=== PATIENT | male | born 1960 | race Caucasian/White ===

== ENCOUNTER 2018-11-09 08:53 | Day surgery (SDC) | payer MEDICARE ==
[2018-11-07 10:12] VITALS: BMI 46.3
[~2018-11-09 08:53] MED LIST: LACTATED RINGERS 1,000 ML IV SCH
[2018-11-09 09:19] VITALS: RESP 16; TEMP 97.8
[2018-11-09 09:32] LABS: Glucose,Whole Blood 124 mg/dL (75-99)
[2018-11-09] MEDS ORDERED: LIDOCAINE 1% 20 ML VIAL (10MG/ML) FOR IV START INTRADERMA ONE (09:32)
[2018-11-09] MEDS ORDERED: GLYCOPYRROLATE 0.2 MG/ML 2 ML VIAL ONE (09:42)
[2018-11-09] MEDS ORDERED: PROPOFOL 10 MG/ML 20 ML VIAL IV ONE (09:42)
[2018-11-09] MEDS ORDERED: fentaNYL (PF) 50 MCG/ML 2 ML AMP ONE (09:42)
[2018-11-09] MEDS ORDERED: LIDOCAINE 1% INJ 10MG/ML (20 ML MDV) ONE (09:42)
[2018-11-09 10:39] VITALS: BP 139/81
--- NOTE | 2018-11-09 10:45 | P.PCN ---
Date of Procedure: 11/09/18 Description of Procedure: Brief history: Patient is a pleasant scheduled for an elective upper endoscopy as well as colonoscopy as a part of evaluation of GERD and personal history of colonic polyps. The patient reports a history of reflux disease for the past few years. He is on PPI therapy daily. He reports good control of his symptoms while on PPIs. He does report that if he stops the medication he will have breakthrough symptoms. He also has a personal history of multiple colonic polyps and reports polypectomy on prior colonoscopies. Last colonoscopy was 2 years ago significant for 5 polyps removed. Procedure performed: Esophagogastroduodenoscopy with biopsy Colonoscopy with polypectomy Estimated blood loss: Minimal. Preoperative diagnosis: GERD, personal history of colonic polyps, high risk surveillance colonoscopy Anesthesia: MAC Procedure: After informed consent was obtained from the patient was brought into the endoscopy unit and IV sedation was administered by anesthesia under continuous monitoring. Initially upper endoscopy was done. The Olympus GF 190 video endoscope was inserted inserted into the mouth and esophagus intubated without any difficulty and was gradually advanced into the stomach and duodenum and carefully examined. The bulb and second part of the duodenum appeared normal, biopsies taken. The scope was then withdrawn into the stomach adequately insufflated with air and upon careful examination the antrum and body, cardia and fundus appeared grossly normal, there was some mild scattered erythema in the antrum and body suggestive of mild gastritis which was biopsied. The scope was then withdrawn into the esophagus. A small hiatal hernia was seen. The GE junction was located at 41 cm to the incisors. The GE junction appeared somewhat irregular and biopsies were taken.. Rest of the esophagus appeared normal. Patient tolerated the procedure well. At this time the patient continued to remain sedation. Initial digital rectal examination was normal. Olympus CF 190 video colonoscope was then inserted into the rectum and gradually advanced to the cecum without any difficulty. Careful examination was performed as the scope was gradually being withdrawn. The prep was poor, with a large amount of solid stool throughout the colon with copious lavage performed, however visualization still impaired due to the stool burden. The visualized portions of the cecum, ascending colon, transverse colon, descending colon, sigmoid colon and rectum appeared normal. 2 diminutive transverse colon polyps measuring 3 and 4 mm were removed with cold forcep polypectomy. 2 diminutive descending colon polyps measuring 2 and 3 mm were removed with cold forcep polypectomy. Retroflexion was performed in the rectum and no lesions were noted, mild internal hemorrhoids noted. Patient tolerated the procedure well. Impression: 1. Poor colon prep, with a large amount of solid stool throughout the colon. 2. Polypectomy, 2 diminutive transverse colon polyps removed with cold forcep polypectomy and 2 diminutive descending colon polyps removed with cold forcep polypectomy. 3. Mild internal hemorrhoids. 4. Mild gastritis antrum and body, biopsied. 5. GE junction biopsies. Duodenal biopsies. Recommendations: Findings of this examination were discussed with the patient as well as his sternum all. Okay to resume diet. Await pathology from biopsies. Recommendation is for repeat colonoscopy in 3-6 months due to poor prep, with a large stool burden which could not be lavaged.
[2018-11-09 10:58] VITALS: PULSE 75
== END 2018-11-09 11:37 | disposition home or self-care (01) ==
LOC: ORWHC2ENDO 08:53
PROVIDERS: ATTEND Internal Medicine
DX: Z12.11 Encounter for screening for malignant neoplasm of colon (principal); D12.4 Benign neoplasm of descending colon; D12.3 Benign neoplasm of transverse colon; K64.8 Other hemorrhoids; K29.50 Unspecified chronic gastritis without bleeding; K22.70 Barrett's esophagus without dysplasia; K21.9 Gastro-esophageal reflux disease without esophagitis; K44.9 Diaphragmatic hernia without obstruction or gangrene; J44.9 Chronic obstructive pulmonary disease, unspecified; E78.5 Hyperlipidemia, unspecified; I10 Essential (primary) hypertension; M19.90 Unspecified osteoarthritis, unspecified site; E11.9 Type 2 diabetes mellitus without complications; E66.01 Morbid (severe) obesity due to excess calories; Z68.42 Body mass index [BMI] 45.0-49.9, adult; Z86.010 Personal history of colon polyps; Z80.0 Family history of malignant neoplasm of digestive organs; Z79.4 Long term (current) use of insulin
CPT/HCPCS: 88305; 45380; 43239; J2001; J3010; J2704

== ENCOUNTER 2019-02-06 10:54 | Inpatient (IN) | payer MEDICARE ==
[2019-02-06] MEDS ORDERED: SODIUM CHLORIDE 0.9% 1,000 ML IV STA ×2 (11:30)
[2019-02-06 12:20] LABS: Basophils # (A) 0.1 k/uL (0-0.2); Basophils % (A) 1 %; Eosinophils # (A) 0.2 k/uL (0-0.7); Eosinophils % (A) 2 %; HCT 52.9 % (39.0-53.0); HGB 17.4 gm/dL (13.0-17.5); Lymphocytes # (A) 2.3 k/uL (1.0-4.8); Lymphocytes % (A) 23 %; MCH 29.8 pg (25.0-35.0); MCHC 32.9 g/dL (31.0-37.0); MCV 90.8 fL (80.0-100.0); Mean Platelet Volume 8.2; Monocytes # (A) 0.8 k/uL (0-1.0); Monocytes % (A) 8 %; Neutrophils # (A) 6.1 k/uL (1.3-7.7); Neutrophils % (A) 64 %; Platelet Count 298 k/uL (150-450); RBC 5.83 m/uL (4.30-5.90); RDW 12.8 % (11.5-15.5); WBC 9.7 k/uL (3.8-10.6)
--- NOTE | 2019-02-06 12:20 | ED ---
Neuro HPI - General Chief Complaint: Neuro Symptoms/Deficit Stated Complaint: Rt side numbness x week Time Seen by Provider: 02/06/19 11:22 Source: patient Mode of arrival: ambulatory Limitations: no limitations - History of Present Illness Is the patient presenting with stroke symptoms?: Yes -: week(s) (Symptoms times one week) Initial Comments: This is a 58-year-old male the ER for evaluation presented with right-sided numbness and tingling weakness and he had facial droop about a week ago the faci al droop has resolved numbness tingling does maintain on the right side right arm right leg. Patient presents today for evaluation, at the urging of his daughter. Patient also has had uncontrolled blood sugar times one week blood sugars running in the 4 to 500s. Patient himself does admit to some fatigue increased thirst and increased urination. Denies any headaches, no recent medication changes denies drugs alcohol abuse no head trauma no fevers. Location: right face, right arm, right leg History of same: No Place: home Severity: mild Quality: numb, tingling Improves With: time Worsens With: none On Anticoagulants: No Context: gradual onset, sudden onset Associated Symptoms: malaise, weakness Treatments Prior to Arrival: none - Related Data Home Medications: Home Medications Medication Instructions Recorded Confirmed Albuterol Inhaler [Ventolin Hfa 1 - 2 puff INHALATION RT-Q6H PRN 11/07/18 02/06/19 Inhaler] Aspirin 325 mg PO DAILY 11/07/18 02/06/19 Atorvastatin [Lipitor] 40 mg PO DAILY 11/07/18 02/06/19 Insulin Aspart [NovoLOG Flexpen] 8 units SQ HS 11/07/18 02/06/19 Insulin Aspart [NovoLOG Flexpen] 16 units SQ AC-TID 11/07/18 02/06/19 Metolazone [Zaroxolyn] 10 mg PO DAILY 11/07/18 02/06/19 Omeprazole 40 mg PO BID 11/07/18 02/06/19 Torsemide [Demadex] 40 mg PO DAILY 11/07/18 02/06/19 metFORMIN HCL [Glucophage] 1,000 mg PO BID 11/07/18 02/06/19 Beclomethasone Dipropionate [Qvar 1 puff INHALATION RT-BID 02/06/19 02/06/19 80 mcg] DULoxetine HCL [Cymbalta] 90 mg PO DAILY 02/06/19 02/06/19 Insulin Glargine,Hum.rec.anlog 30 unit SQ BID 02/06/19 02/06/19 [Lantus Solostar] Losartan Potassium 100 mg PO DAILY 02/06/19 02/06/19 Ondansetron HCl [Zofran] 8 mg PO DAILY PRN 02/06/19 02/06/19 Potassium Chloride ER [K-Dur 20] 20 meq PO DAILY 02/06/19 02/06/19 Tamsulosin HCl [Flomax] 0.4 mg PO DAILY 02/06/19 02/06/19 lamoTRIgine 200 mg PO DAILY 02/06/19 02/06/19 Allergies/Adverse Reactions: Allergies Allergy/AdvReac Type Severity Reaction Status Date / Time No Known Allergies Allergy Verified 02/06/19 11:49 Review of Systems ROS Statement: Those systems with pertinent positive or pertinent negative responses have been documented in the HPI. ROS Other: All systems not noted in ROS Statement are negative. General Exam Limitations: no limitations General appearance: alert, in no apparent distress Head exam: Present: atraumatic, normocephalic, normal inspection Eye exam: Present: normal appearance, PERRL, EOMI. Absent: scleral icterus, conjunctival injection, periorbital swelling ENT exam: Present: normal exam, mucous membranes moist Neck exam: Present: normal inspection. Absent: tenderness, meningismus, lymphadenopathy Respiratory exam: Present: normal lung sounds bilaterally. Absent: respiratory distress, wheezes, rales, rhonchi, stridor Cardiovascular Exam: Present: normal rhythm, tachycardia, normal heart sounds. Absent: systolic murmur, diastolic murmur, rubs, gallop, clicks GI/Abdominal exam: Present: soft, normal bowel sounds. Absent: distended, tenderness, guarding, rebound, rigid Extremities exam: Present: normal inspection, full ROM, normal capillary refill. Absent: tenderness, pedal edema, joint swelling, calf tenderness Back exam: Present: normal inspection Neurological exam: Present: alert, oriented X3, CN II-XII intact Psychiatric exam: Present: normal affect, normal mood Skin exam: Present: warm, dry, intact, normal color. Absent: rash Stroke MDM - Lab Data Result diagrams: 02/06/19 11:40 02/06/19 11:40 Lab Results 02/06/19 02/06/19 02/06/19 Range/Units 11:40 11:40 11:40 WBC 9.7 (3.8-10.6) k/uL RBC 5.83 (4.30-5.90) m/uL Hgb 17.4 (13.0-17.5) gm/dL Hct 52.9 (39.0-53.0) % MCV 90.8 (80.0-100.0) fL MCH 29.8 (25.0-35.0) pg MCHC 32.9 (31.0-37.0) g/dL RDW 12.8 (11.5-15.5) % Plt Count 298 (150-450) k/uL Neutrophils % 64 % Lymphocytes % 23 % Monocytes % 8 % Eosinophils % 2 % Basophils % 1 % Neutrophils # 6.1 (1.3-7.7) k/uL Lymphocytes # 2.3 (1.0-4.8) k/uL Monocytes # 0.8 (0-1.0) k/uL Eosinophils # 0.2 (0-0.7) k/uL Basophils # 0.1 (0-0.2) k/uL PT 9.7 (9.0-12.0) sec INR 0.9 (<1.2) APTT 22.8 (22.0-30.0) sec Sodium 135 L (137-145) mmol/L Potassium 3.9 (3.5-5.1) mmol/L Chloride 91 L (98-107) mmol/L Carbon Dioxide 29 (22-30) mmol/L Anion Gap 15 mmol/L BUN 33 H (9-20) mg/dL Creatinine 1.20 (0.66-1.25) mg/dL Est GFR (CKD-EPI)AfAm 78 (>60 ml/min/1.73 sqM) Est GFR (CKD-EPI)NonAf 67 (>60 ml/min/1.73 sqM) Glucose 293 H (74-99) mg/dL Calcium 11.0 H (8.4-10.2) mg/dL Total Bilirubin 1.0 (0.2-1.3) mg/dL AST 24 (17-59) U/L ALT 15 L (21-72) U/L Alkaline Phosphatase 83 (38-126) U/L Creatine Kinase 380 H (55-170) U/L Troponin I (0.000-0.034) ng/mL Total Protein 8.0 (6.3-8.2) g/dL Albumin 4.6 (3.5-5.0) g/dL 02/06/19 Range/Units 11:40 WBC (3.8-10.6) k/uL RBC (4.30-5.90) m/uL Hgb (13.0-17.5) gm/dL Hct (39.0-53.0) % MCV (80.0-100.0) fL MCH (25.0-35.0) pg MCHC (31.0-37.0) g/dL RDW (11.5-15.5) % Plt Count (150-450) k/uL Neutrophils % % Lymphocytes % % Monocytes % % Eosinophils % % Basophils % % Neutrophils # (1.3-7.7) k/uL Lymphocytes # (1.0-4.8) k/uL Monocytes # (0-1.0) k/uL Eosinophils # (0-0.7) k/uL Basophils # (0-0.2) k/uL PT (9.0-12.0) sec INR (<1.2) APTT (22.0-30.0) sec Sodium (137-145) mmol/L Potassium (3.5-5.1) mmol/L Chloride (98-107) mmol/L Carbon Dioxide (22-30) mmol/L Anion Gap mmol/L BUN (9-20) mg/dL Creatinine (0.66-1.25) mg/dL Est GFR (CKD-EPI)AfAm (>60 ml/min/1.73 sqM) Est GFR (CKD-EPI)NonAf (>60 ml/min/1.73 sqM) Glucose (74-99) mg/dL Calcium (8.4-10.2) mg/dL Total Bilirubin (0.2-1.3) mg/dL AST (17-59) U/L ALT (21-72) U/L Alkaline Phosphatase (38-126) U/L Creatine Kinase (55-170) U/L Troponin I <0.012 (0.000-0.034) ng/mL Total Protein (6.3-8.2) g/dL Albumin (3.5-5.0) g/dL - NIH Stroke Scale 1a. Level of Consciousness: (0) alert 1b. LOC Questions: (0) answers correctly 1c. LOC Commands: (0) performs tasks correctly 2. Best Gaze: (0) normal 3. Visual: (0) no visual loss 4. Facial Palsy: (0) normal symmetrical movement 5a. Motor Arm Left: (0) no drift 5b. Motor Arm Right: (0) no drift 6a. Motor Leg Left: (0) no drift 6b. Motor Leg Right: (0) no drift 7. Limb Ataxia: (0) absent 8. Sensory: (1) mild/moderate sensory loss 9. Best Language: (0) no aphasia 10. Dysarthria: (0) normal 11. Extinction/Inattention: (0) no abnormality - Thrombolytic Inclusion/Exclusion Thrombolytic Exclusion Criteria: Symptom Onset > 3 Hours - Medical Decision Making 58 male the ER for evaluation patient resents today for evaluation regarding strokelike symptoms elevated blood sugar CTs are negative, patient has history of diabetes and risk factors for stroke. Patient is to be admitted for evaluation by neurology - Radiology Data Radiology results: report reviewed (CT CTA negative for acute disease), image reviewed - EKG Data -: EKG Interpreted by Me (EKG shows sinus tach cardia rate of 101, W[place] 1:30, QRS 70, QTc 453) Past Medical History Past Medical History: COPD, Diabetes Mellitus, GERD/Reflux, Hyperlipidemia, Hypertension, Osteoarthritis (OA) Additional Past Medical History / Comment(s): hx of colon polyps, hx back pain, varicose veins, neuropathy ed feet, ed feet edema, History of Any Multi-Drug Resistant Organisms: None Reported Past Surgical History: Hernia Repair Additional Past Surgical History / Comment(s): left jaw benign tumor removed, left jaw "impacted tissue" removed, left testicular hernia, abdominal hernia, epidural pain shots Past Anesthesia/Blood Transfusion Reactions: No Reported Reaction Past Psychological History: Depression Smoking Status: Former smoker Past Alcohol Use History: None Reported Past Drug Use History: None Reported - Past Family History Mother Family Medical History: No Reported History Course Vital Signs 02/06/19 11:04 Temperature 98.7 F Pulse Rate 110 H Respiratory 18 Rate Blood Pressure 123/76 O2 Sat by Pulse 97 Oximetry Disposition Clinical Impression: Cerebrovascular accident, Transient cerebral ischemia Disposition: ADMITTED IP TO THIS HOSP Condition: Fair Is patient prescribed a controlled substance at d/c from ED?: No Referrals: Pooja Talley MD [Primary Care Provider] - 1-2 days
[2019-02-06 12:29] LABS: Albumin 4.6 g/dL (3.5-5.0); Potassium 3.9 mmol/L (3.5-5.1)
[2019-02-06 12:39] LABS: INR 0.9 (<1.2); Partial Thromboplastin Time 22.8 sec (22.0-30.0); Prothrombin Time 9.7 sec (9.0-12.0)
--- NOTE | 2019-02-06 13:18 | CT ---
EXAMINATION TYPE: CT brain wo con for TPA DATE OF EXAM: 02/06/2019 COMPARISON: None HISTORY: Neuro Deficits Unenhanced CT of the brain was performed. The ventricles, basal cisterns and sulci overlying the cerebral convexities demonstrate mild enlargem ent. There is no evidence for intracranial hemorrhage or sulcal effacement. There is decreased attenuation about the periventricular white matter and deep white matter of both c erebral hemispheres, compatible with chronic small vessel ischemia. Differential diagnosis does inclu de demyelination. No mass effects are seen.No midline shift. Osseous calvarium is intact. If symptoms persist consider MRI. IMPRESSION: 1. Age related atrophic and chronic small vessel ischemic change without acute intracranial process s een at this time.
--- NOTE | 2019-02-06 13:33 | CT ---
EXAMINATION TYPE: CT angio head neck DATE OF EXAM: 02/06/2019 COMPARISON: None HISTORY: Right sided numbness x [address] DLP: 465.4 mGycm CONTRAST: Performed with IV Contrast, patient injected with 100 mL of Isovue 370. Combination Contrast CTA cervical carotids and [place] CTA cervical carotids with 3-D recons truction Contrast CTA of the cervical carotids was performed 3-D reconstruction imaging obtained at a separate workstation. Right carotid system: Mild plaque is seen of the right common carotid artery. There is mild plaque a lso noted at the carotid bulb and proximal ICA. No significant diameter reduction. ECA is patent. Right vertebral artery appears unremarkable. Left carotid system: Mild plaque is seen of the left common carotid artery. There is mild plaque als o noted at the carotid bulb and proximal ICA. No significant diameter reduction. ECA is patent. Lef t vertebral artery appears unremarkable. IMPRESSION: 1. No significant diameter reduction to account for the patient's symptoms. CTA [place] with 3-D reconstruction Contrast CTA of the [place] was performed 3-D reconstruction imaging obtained at a separate workstation. Vertebrobasilar system as well as intracranial portions of the internal carotid arteries and their [place] tributaries are patent. I do not see evidence for sizable aneurysm or vascular malformation. Pl ease note MRI provides greater sensitivity and specificity. Visualized brain appears grossly unremar kable. IMPRESSION: 1. No significant abnormality.
--- NOTE | 2019-02-06 13:34 | XR ---
EXAMINATION TYPE: XR chest 2V DATE OF EXAM: 02/06/2019 COMPARISON: NONE HISTORY: Shortness of breath TECHNIQUE: Frontal and lateral views of the chest are obtained. FINDINGS: Scattered senescent parenchymal changes noted. Hyperinflation compatible with COPD. No evidence for infiltrate. No evidence for atelectasis. Heart size is stable. Mediastinal structures are stable and grossly unremarkable. No evidence for hilar prominence. Degenerative changes dorsal spine. IMPRESSION: 1. No evidence for acute pulmonary disease.
[2019-02-06 13:48] LABS: Appearance,Urine Clear (Clear); Bilirubin,Urine Negative (Negative); Blood,Urine Negative (Negative); Color,Urine Light Yellow; Glucose,Urine (UA) 3+ (Negative); Ketones,Urine Negative (Negative); Leukocyte Esterase,Urine Negative (Negative); Nitrite,Urine Negative (Negative); PH, Urine 5.5 (5.0-8.0); Protein,Urine Negative (Negative); Specific Gravity,Urine 1.028 (1.001-1.035); Urobilinogen,Urine <2.0 mg/dL (<2.0)
[2019-02-06 15:28] LABS: Glucose,Whole Blood 200 mg/dL (75-99)
[2019-02-06] MEDS ORDERED: PNEUMOCOCCAL VACC-PNEUMOVAX 23 25 MCG/0.5 ML VIAL IM ONE (16:08)
[2019-02-06 17:46] LABS: Glucose,Whole Blood 251 mg/dL (75-99)
--- NOTE | 2019-02-06 18:43 | P.CNNES ---
History of Present Illness Consult date: 02/06/19 Requesting physician: Parker Rai Reason for Consult: CVA Chief complaint: "My right side has felt numb since a week ago" History of Present Illness: This is a 58 RH male with copious vascular risk factors including HTN, DMII, HL and h/o tobacco use who a week ago experienced abrupt onset of facial droop, slurred speech, right facial, upper and lower extremity numbness. The facial ameena op and dysarthria have improved, but his right hemianesthesia has not. He walks with a cane. No recent h/o head/neck trauma. No recent changes to his meds. He had been compliant with aspirin 81mg/day therapy prior to the onset of the above neuro sx. Neurologically, patient denies decreased level or loss of consciousness, headache, changes in vision, diplopia, amaurosis, vertigo, dysphagia, aphasia, other focal numbness/weakness not mentioned above, tremors or bowel/bladder incontinence. Balance has not been the best especially since he feels numb on the right side. Review of Systems 14-point ROS performed and as per HPI. Past Medical History Past Medical History: COPD, Diabetes Mellitus, GERD/Reflux, Hyperlipidemia, Hype rtension, Osteoarthritis (OA), Vascular Disorder Additional Past Medical History / Comment(s): IDDM type II, neuropathy bilateral legs/feet, PVD, bilateral lower leg/ankle/pedal edema, bilateral legs varicose veins, arthritis mostly in back and R 4th finger, benign colon polyps History of Any Multi-Drug Resistant Organisms: None Reported Past Surgical History: Hernia Repair Additional Past Surgical History / Comment(s): left jaw benign tumor removed, left jaw "impacted tissue" removed, left testicular hernia, abdominal hernia, epidural pain shots, EGD/colonoscopy with benign polyp. Past Anesthesia/Blood Transfusion Reactions: No Reported Reaction Smoking Status: Former smoker - Past Family History Mother Family Medical History: Myocardial Infarction (PR) Additional Family Medical History / Comment(s): Mother from a PR in her early 50s. Father Additional Family Medical History / Comment(s): Father had diabetes and had bi lateral foot amputations and then of a massive PR while recovering from that. He was in his 50s. Medications and Allergies Home Medications Medication Instructions Recorded Confirmed Type Albuterol Inhaler [Ventolin Hfa 1 - 2 puff INHALATION RT-Q6H PRN 11/07/18 02/06/19 History Inhaler] Aspirin 325 mg PO DAILY 11/07/18 02/06/19 History Atorvastatin [Lipitor] 40 mg PO DAILY 11/07/18 02/06/19 History Insulin Aspart [NovoLOG Flexpen] 8 units SQ HS 11/07/18 02/06/19 History Insulin Aspart [NovoLOG Flexpen] 16 units SQ AC-TID 11/07/18 02/06/19 History Metolazone [Zaroxolyn] 10 mg PO DAILY 11/07/18 02/06/19 History Omeprazole 40 mg PO BID 11/07/18 02/06/19 History Torsemide [Demadex] 40 mg PO DAILY 11/07/18 02/06/19 History metFORMIN HCL [Glucophage] 1,000 mg PO BID 11/07/18 02/06/19 History Beclomethasone Dipropionate [Qvar 1 puff INHALATION RT-BID 02/06/19 02/06/19 History 80 mcg] DULoxetine HCL [Cymbalta] 90 mg PO DAILY 02/06/19 02/06/19 History Insulin Glargine,Hum.rec.anlog 30 unit SQ BID 02/06/19 02/06/19 History [Lantus Solostar] Losartan Potassium 100 mg PO DAILY 02/06/19 02/06/19 History Ondansetron HCl [Zofran] 8 mg PO DAILY PRN 02/06/19 02/06/19 History Potassium Chloride ER [K-Dur 20] 20 meq PO DAILY 02/06/19 02/06/19 History Tamsulosin HCl [Flomax] 0.4 mg PO DAILY 02/06/19 02/06/19 History lamoTRIgine 200 mg PO DAILY 02/06/19 02/06/19 History Allergies Allergy/AdvReac Type Severity Reaction Status Date / Time No Known Allergies Allergy Verified 02/06/19 11:49 Physical Examination - Vital Signs Vital Signs: Vital Signs Temp Pulse Resp BP Pulse Ox 02/06/19 16:30 90 20 135/90 95 02/06/19 16:00 87 16 133/80 97 02/06/19 15:30 87 14 133/87 97 02/06/19 15:00 78 18 124/77 95 02/06/19 14:30 89 18 130/73 94 L 02/06/19 14:00 139/81 96 02/06/19 13:30 115/69 96 02/06/19 13:00 131/90 02/06/19 12:30 98 16 132/88 93 L 02/06/19 12:05 97 02/06/19 11:04 98.7 F 110 H 18 123/76 97 Intake and Output 02/06/19 02/06/19 02/06/19 06:59 14:59 22:59 Other: Weight 130.181 kg Gen NAD Pleasant and cooperative HEENT NCAT Sclera without icterus O/P clear Neck Supple No carotid bruit Cor RRR no m/r/g Lungs CTAB Abd Soft NTND +BS Ext Warm to touch No edema Neuro MS A+Ox4 Normal fluency Able to follow all commands CN PERRL VFF no APD EOMI no nystagmus or NEVAEH Right V1-3 diminished to No facial asymmetry [place]'s symmetric Hearing intact to normal voice bilaterally Speech not dysarthric Equal elevation of palate Tongue midline Sym shrug and SCM bilaterally Motor Normal bulk/tone No pronator or leg drift or tremors Strength 5/5 sym t hroughout Sens Diminished to LT throughout right No neglect or extinction Coord Mild sensory ataxia on right FTN DTRs Tr sym throughout Toes downgoing bilaterally No clonus at achilles Gait Deferred NIHSS 2 Results - Laboratory Findings CBC and BMP: 02/06/19 11:40 02/06/19 11:40 Abnormal Lab Findings: Abnormal Labs 02/06/19 02/06/19 02/06/19 11:40 13:25 15:26 Sodium 135 L Chloride 91 L BUN 33 H Glucose 293 H POC Glucose (mg/dL) 200 H Calcium 11.0 H ALT 15 L Creatine Kinase 380 H Urine Glucose (UA) 3+ H 02/06/19 17:45 Sodium Chloride BUN Glucose POC Glucose (mg/dL) 251 H Calcium ALT Creatine Kinase Urine Glucose (UA) - Diagnostic Findings Additional findings: CT head without contrast 02/06/19. Age-related atrophy and chronic small vessel ischemic changes. No acute intracranial abnormalities seen. CTA Head/Neck 02/06/19. There is mild plaque at the carotid bulb and proximal bilateral ICA without significant intra-or extracranial vascular stenosis or occ lusion. I have reviewed all neuroimages myself. Assessment and Plan Assessment: Right hemianesthesia with concerns for contralateral hemispheric ischemic inf arct, subacute. Copious vascular risk factors: HTN, DMII, HL. Plan: -Since he had been compliant with aspirin prior to his CVA, will switch to clopidogrel 75mg/day. There is no LVO or stenosis to justify long-term DAPT. -May treat BP to normotensive range given he is one week out from the onset of his CVA. -Goals BP <130/80, hga1c <7.0 and LDL <70 -Continue to abstain from tobacco -MRI Brain wo ganga -TTE -PT/OT/SP per protocol -DVT prophylaxis: Heparin SC -d/w patient in detail. All questions answered. Thank you for this consultation. Please call with ?. Time with Patient: Greater than 30 (Time spent in direct patient care, greater than 50% of which was spent in [id number] counseling and coordination of care: 70 minutes.)
[2019-02-06] MEDS: INSULIN ASPART (NovoLOG) 100 UNIT/ML VIAL SQ SCH ×2 (19:08→22:28)
[2019-02-06] MEDS ORDERED: IPRATROPIUM-ALBUTEROL 3 ML NEB INHALATION PRN (19:57)
[2019-02-06] MEDS: FLUTICASONE 110 MCG INHALER INHALATION SCH (20:38)
[2019-02-06 21:05] LABS: Glucose,Whole Blood 168 mg/dL (75-99)
[2019-02-06] MEDS ORDERED: ALBUTEROL INHALER 60 PUFF/8 GM INHALER INHALATION PRN (22:15)
[2019-02-06] MEDS ORDERED: ONDANSETRON 4 MG TAB PO PRN (22:15)
[2019-02-06] MEDS: ASPIRIN 325 MG TAB PO SCH (22:27)
[2019-02-06] MEDS: INSULIN DETEMIR (LEVEMIR) 100 UNIT/ML SYR SQ SCH (22:28)
[2019-02-06] MEDS: HEPARIN SODIUM,PORCINE 5,000 UNIT/ML 1 ML VIAL SQ SCH (22:28)
--- NOTE | 2019-02-07 03:46 | HP ---
HISTORY AND PHYSICAL DATE OF SERVICE: 02/06/2019 CHIEF COMPLAINT: Numbness of the right side of the body. HISTORY OF PRESENT ILLNESS: This 58-year-old gentleman with a past medical history of multiple medical problems, including COPD, diabetes, GERD, hypertension, hyperlipidemia, DJD, being followed by Dr. Talley in the outpatient setting, was complaining of right-sided numbness, including the right upper and lower limbs and the face. The patient had uncontrolled blood sugars running 400 to 500. The patient came to [facility] and was admitted for evaluation and treatment. CT scan of the brain was done. Neurology evaluation is in progress. CT angio was also done. The CT scan of the brain showed age-related atrophy and small-vessel ischemic changes. A sensory stroke was suspected and the patient was admitted for further evaluation. An MRI has been recommended by Neurology at this time. The CTA showed no significant abnormality. PAST MEDICAL HISTORY: 1. History of diabetes mellitus. 2. GERD. 3. Hypertension. 4. Hyperlipidemia. 5. History of DJD. 6. History of COPD. HOME MEDICATIONS: 1. Zofran 8 mg daily p.r.n. 2. NovoLog 16 units before meals t.i.d. 3. Lantus 30 units subcutaneously b.i.d. 4. Aspirin 325 mg daily. 5. Ventolin 1-2 puffs q.6 p.r.n. 6. Flomax 0.4 daily. 7. Losartan 100 mg p.o. daily. 8. Lamictal 200 mg p.o. daily. 9. NovoLog 8 units subcutaneously at bedtime. 10.Cymbalta 90 mg p.o. daily. 11.Omeprazole 40 mg p.o. b.i.d. 12.Qvar 80 mcg 1 puff b.i.d. 13.Lipitor 40 mg p.o. daily. 14.Glucophage 1000 mg p.o. b.i.d. 15.Demadex 40 mg p.o. daily. 16.K-Dur 20 mEq p.o. daily. 17.Metolazone 10 mg p.o. daily. ALLERGIES: NONE. FAMILY HISTORY: History of myocardial infarction in the family. SOCIAL HISTORY: No history of smoking. Occasional alcohol intake. REVIEW OF SYSTEMS: ENT: No diminished hearing. No diminished vision. CARDIOVASCULAR SYSTEM: No angina, palpitations. RESPIRATORY SYSTEM: No cough, hemoptysis. GI: As mentioned earlier. : No dysuria or retention. NERVOUS SYSTEM: As mentioned earlier. ALLERGY/IMMUNOLOGY: No asthma, hayfever. MUSCULOSKELETAL: As mentioned earlier. HEMATOLOGY/ONCOLOGY: No history of anemia. ENDOCRINE: Diabetes. CONSTITUTIONAL: As mentioned earlier. DERMATOLOGY: Negative. RHEUMATOLOGY: Negative. PSYCHIATRY: As mentioned earlier. PHYSICAL EXAMINATION: Patient alert and oriented x3. Pulse is 89, blood pressure 128/74, respiration 18, temperature 97.1, pulse ox 94% on room air. HEENT: Conjunctivae normal. Oral mucosa moist. NECK: No jugular venous distention. No carotid bruit. No lymph node enlargement. CARDIOVASCULAR SYSTEM: S1, S2 muffled. No S3. No S4. RESPIRATORY SYSTEM: Breath sounds diminished at the bases. No rhonchi. No crackles. ABDOMEN: Soft, nontender. No mass palpable. LEGS: No edema. No swelling. NERVOUS SYSTEM: Higher functions as mentioned earlier. Cranial nerves II through XII grossly intact. MOTOR SYSTEM: No weakness. SENSORY SYSTEM: Significant diminishing of the sensory on the right side, almost to zero across the face and the trunk and left upper and lower limbs. Gait is normal. SKIN: No ulcer, rash, bleeding. JOINTS: No active deforming arthropathy. LYMPHATICS: No lymph node palpable in neck, axillae or groin. LABS: CBC within normal limits. Sodium 135, glucose 293 and calcium is 11. Creatine kinase 380. ASSESSMENT: 1. Acute right-sided numbness, possibly sensory stroke involving the left hemisphere, or transient ischemic attack. 2. Diabetes mellitus, type 2, uncontrolled with hyperglycemia. 3. Hypercalcemia. 4. Increased creatine kinase. 5. Hyponatremia, mild. 6. History of chronic obstructive pulmonary disease. 7. History of diabetes mellitus, type 2. 8. History of gastroesophageal reflux disease. 9. Hypertension. 10.Hyperlipidemia. 11.History of degenerative joint disease. 12.History of peripheral neuropathy. 13.History of peripheral vascular disease. 14.History of varicose veins. 15.History of depression. 16.Remote history of nicotine dependence. RECOMMENDATIONS AND DISCUSSION: In this 58-year-old gentleman who presented with multiple complex medical issues, we will monitor the patient closely, continue the current management, continue symptomatic treatment, continue antiplatelet agents, Lipitor. Monitor blood sugars closely. Hemoglobin A1c. Closely follow with Neurology. Neurovascular workup and MRI. Resume the home medications. Guarded prognosis because of multiple complex medical issues. Further recommendations to follow. A copy of this dictation is being forwarded to Dr. Talley, who is the primary physician. KARTHIK / KODY: [id number] / MTDD
[2019-02-07 06:25] LABS: Glucose,Whole Blood 162 mg/dL (75-99)
[2019-02-07 07:28] LABS: Basophils # (A) 0.1 k/uL (0-0.2); Basophils % (A) 1 %; Eosinophils # (A) 0.4 k/uL (0-0.7); Eosinophils % (A) 6 %; HCT 50.3 % (39.0-53.0); HGB 16.1 gm/dL (13.0-17.5); Lymphocytes # (A) 2.6 k/uL (1.0-4.8); Lymphocytes % (A) 36 %; MCH 29.4 pg (25.0-35.0); MCV 91.9 fL (80.0-100.0); Mean Platelet Volume 8.1; Monocytes # (A) 0.6 k/uL (0-1.0); Monocytes % (A) 8 %; Neutrophils # (A) 3.3 k/uL (1.3-7.7); Neutrophils % (A) 46 %; Platelet Count 252 k/uL (150-450); RBC 5.47 m/uL (4.30-5.90); RDW 12.8 % (11.5-15.5); WBC 7.2 k/uL (3.8-10.6)
[2019-02-07] MEDS: FLUTICASONE 110 MCG INHALER INHALATION SCH ×2 (07:35→20:07)
[2019-02-07 07:44] LABS: African American GFR (CKD) >90 (>60 ml/min/1.73 sqM); Anion Gap 11 mmol/L; Blood Urea Nitrogen 21 mg/dL (9-20); Carbon Dioxide 30 mmol/L (22-30); Chloride 97 mmol/L (98-107); Cholesterol 155 mg/dL (<200); Glucose 162 mg/dL (74-99); HDL Cholesterol 35 mg/dL (40-60); LDL Cholesterol,Calculated 81 mg/dL (0-99); Potassium 3.5 mmol/L (3.5-5.1); Sodium 138 mmol/L (137-145); Triglycerides 194 mg/dL (<150)
[2019-02-07] MEDS: INSULIN ASPART (NovoLOG) 100 UNIT/ML VIAL SQ SCH ×7 (07:57→21:18)
[2019-02-07] MEDS: INSULIN DETEMIR (LEVEMIR) 100 UNIT/ML SYR SQ SCH ×2 (07:57→21:18)
[2019-02-07] MEDS: DULoxetine HCL 30 MG CAPSULE.DR PO SCH (07:58)
[2019-02-07] MEDS: POTASSIUM CHLORIDE ER 20 MEQ TAB.ER PO SCH (07:58)
[2019-02-07] MEDS: ATORVASTATIN 40 MG TAB PO SCH (07:58)
[2019-02-07] MEDS: ASPIRIN 325 MG TAB PO SCH (07:58)
[2019-02-07] MEDS: PANTOPRAZOLE 40 MG TABLET PO SCH ×2 (07:58→16:53)
[2019-02-07] MEDS: metFORMIN 500 MG TAB PO SCH ×2 (07:59→21:18)
[2019-02-07] MEDS: LOSARTAN 50 MG TAB PO SCH (07:59)
[2019-02-07] MEDS: lamoTRIgine 100 MG TAB PO SCH (07:59)
[2019-02-07] MEDS: TAMSULOSIN 0.4 MG CAP.ER.24H PO SCH (07:59)
[2019-02-07] MEDS: METOLAZONE 5 MG TAB PO SCH (07:59)
--- NOTE | 2019-02-07 09:35 | P.PN ---
Subjective Progress Note Date: 02/07/19 Principal diagnosis: CVA No events O/N. Getting therapy eval this am. Numbness unchanged. No new neuro c/o. Objective - Vital Signs Vital signs: Vital Signs Temp 98.7 F 02/07/19 08:05 Pulse 80 02/07/19 08:05 Resp 18 02/07/19 08:05 BP 115/61 02/07/19 08:05 Pulse Ox 93 L 02/07/19 08:05 Intake & Output 02/06/19 02/07/19 02/07/19 18:59 06:59 18:59 Intake Total 350 240 Output Total 400 Balance 350 -160 Weight 130.181 kg 125.5 kg Intake: IV 350 Sodium Chloride 0.9% 1, 350 000 ml @ 100 mls/hr IV . Q10H STA Rx#:[id number] Oral 240 Output: Urine 400 Other: Voiding Method Toilet - Exam Gen NAD Pleasant and cooperative Neuro MS A+Ox4 Normal fluency Able to follow all commands CN PERRL VFF no APD EOMI no nystagmus or NEVAEH Right V1-3 diminished to No facial asymmetry Masseter's symmetric Hearing intact to normal voice bilaterally Speech not dysarthric Equal elevation of palate Tongue midline Sym shrug and SCM bilaterally Motor Normal bulk/tone No pronator or leg drift or tremors Strength 5/5 sym throughout Sens Diminished to LT throughout right No neglect or extinction Coord Mild sensory ataxia on right FTN DTRs Tr sym throughout Toes downgoing bilaterally No clonus at achilles Gait Deferred NIHSS 2 - Labs CBC & Chem 7: 02/07/19 06:29 02/07/19 06:29 Labs: Abnormal Lab Results - Last 24 Hours (Table) 02/06/19 02/06/19 02/06/19 Range/Units 11:40 13:25 15:26 Sodium 135 L (137-145) mmol/L Chloride 91 L (98-107) mmol/L BUN 33 H (9-20) mg/dL Glucose 293 H (74-99) mg/dL POC Glucose (mg/dL) 200 H (75-99) mg/dL Calcium 11.0 H (8.4-10.2) mg/dL ALT 15 L (21-72) U/L Creatine Kinase 380 H (55-170) U/L Triglycerides (<150) mg/dL HDL Cholesterol (40-60) mg/dL Urine Glucose (UA) 3+ H (Negative) 02/06/19 02/06/19 02/07/19 Range/Units 17:45 21:03 06:25 Sodium (137-145) mmol/L Chloride (98-107) mmol/L BUN (9-20) mg/dL Glucose (74-99) mg/dL POC Glucose (mg/dL) 251 H 168 H 162 H (75-99) mg/dL Calcium (8.4-10.2) mg/dL ALT (21-72) U/L Creatine Kinase (55-170) U/L Triglycerides (<150) mg/dL HDL Cholesterol (40-60) mg/dL Urine Glucose (UA) (Negative) 02/07/19 02/07/19 Range/Units 06:29 06:29 Sodium (137-145) mmol/L Chloride 97 L (98-107) mmol/L BUN 21 H (9-20) mg/dL Glucose 162 H (74-99) mg/dL POC Glucose (mg/dL) (75-99) mg/dL Calcium (8.4-10.2) mg/dL ALT (21-72) U/L Creatine Kinase 381 H (55-170) U/L Triglycerides 194 H (<150) mg/dL HDL Cholesterol 35 L (40-60) mg/dL Urine Glucose (UA) (Negative) Assessment and Plan Assessment: Right hemianesthesia with concerns for contralateral hemispheric ischemic infarct, subacute. Copious vascular risk factors: HTN, DMII, HL. Plan: -Clopidogrel 75mg po qd. -May treat BP to normotensive range given he is one week out from the onset of his CVA. -Goals BP <130/80, hga1c <7.0 and LDL <70 -Continue to abstain from tobacco -MRI Brain wo ganga -TTE -PT/OT/SP per protocol -DVT prophylaxis: Heparin SC -d/w patient in detail. All questions answered. Thank you again for this consultation. Please call with ?. Time with Patient: Less than 30 (Time spent in direct patient care, greater than 50% of which was spent in [id number] counseling and coordination of care: 25 minutes.)
[2019-02-07] MEDS: TORSEMIDE 20 MG TAB PO SCH (10:14)
[2019-02-07] MEDS: CLOPIDOGREL 75 MG TAB PO SCH (10:14)
[2019-02-07] MEDS: HEPARIN SODIUM,PORCINE 5,000 UNIT/ML 1 ML VIAL SQ SCH ×3 (10:14→23:09)
[2019-02-07 11:17] LABS: Glucose,Whole Blood 180 mg/dL (75-99)
--- NOTE | 2019-02-07 15:08 | MR ---
EXAMINATION TYPE: MR brain wo con DATE OF EXAM: 02/07/2019 COMPARISON: 02/06/2019 CT brain HISTORY: Right sided numbness x 1 week, CVA/TIA CONTRAST: Performed utilizing 0 mL intravenous Gadavist gadolinium contrast. TECHNIQUE: Multiplanar, multiecho imaging on a 3.0 Kelsea magnet is performed through the brain. Stud y is performed within 24 hours of arrival to the hospital. The craniovertebral junction is normal. The pituitary is normal. Diffusion-weighted imaging is performed. There is increased signal within the left thalamus compatib le with an acute ischemic change within the mid left thalamus. There are scattered punctate areas of hyperintensity on T2 and Inversion Recovery weighted sequences which are non-specific but can be related to microvascular ischemic changes. Ventricles and sulci are appropriate for the patient age. IMPRESSIONS: 1. Acute lacunar infarct left thalamus
--- NOTE | 2019-02-07 15:50 | PN ---
PROGRESS NOTE DATE OF SERVICE: 02/07/2019 This 58-year-old gentleman was admitted with sensory loss on the right side, a possible sensory stroke. Neurology is following the patient. MRI is pending at this time. No chest pain. No palpitations. No fever. On exam, alert and oriented x3. Pulse 86, blood pressure 111/66, respiration 18, temperature 98.7, pulse ox 94% on room air. HEENT: Conjunctivae normal. NECK: No jugular venous distention. CARDIOVASCULAR SYSTEM: S1, S2 muffled. RESPIRATORY SYSTEM: Breath sounds diminished at the bases. No rhonchi. No crackles. ABDOMEN: Soft. NERVOUS SYSTEM: Unchanged. Significant sensory loss on the right side. LABS: CBC within normal limits. Glucose 162. Creatine kinase 381, triglycerides 194. AST is ASSESSMENT: 1. Acute right-sided numbness, possibly sensory stroke involving the left hemisphere, or transient ischemic attack. 2. Diabetes mellitus, type 2, uncontrolled, with hyperglycemia. 3. Hypercalcemia. 4. Increased creatine kinase. 5. Hyponatremia , mild. 6. Chronic obstructive pulmonary disease. 7. Diabetes mellitus, type 2. 8. History of gastroesophageal reflux disease. 9. Hypertension. 10.Hyperlipidemia. 11.History of degenerative joint disease. 12.History of peripheral neuropathy. 13.History of peripheral vascular disease. 14.History of varicose veins. 15.History of depression. 16.Remote history of nicotine dependence. RECOMMENDATIONS AND DISCUSSION: I recommend to continue current medications, continue with the monitoring, symptomatic treatment. MRI. Monitor closely. Telemetry. Otherwise, the labs are improving at this time. Continue to monitor. Further recommendations to follow. MMODL / IJN: [id number] / MTDD
[2019-02-07 16:40] LABS: Glucose,Whole Blood 106 mg/dL (75-99)
[2019-02-07 20:19] LABS: Glucose,Whole Blood 154 mg/dL (75-99)
[2019-02-08 05:43] LABS: Glucose,Whole Blood 197 mg/dL (75-99)
[2019-02-08] MEDS: FLUTICASONE 110 MCG INHALER INHALATION SCH (06:56)
[2019-02-08] MEDS: INSULIN ASPART (NovoLOG) 100 UNIT/ML VIAL SQ SCH ×4 (07:51→12:03)
[2019-02-08] MEDS: PANTOPRAZOLE 40 MG TABLET PO SCH (07:51)
[2019-02-08 07:58] VITALS: TEMP 98.4
[2019-02-08] MEDS: METOLAZONE 5 MG TAB PO SCH (09:25)
[2019-02-08] MEDS: TAMSULOSIN 0.4 MG CAP.ER.24H PO SCH (09:25)
[2019-02-08] MEDS: LOSARTAN 50 MG TAB PO SCH (09:25)
[2019-02-08] MEDS: DULoxetine HCL 30 MG CAPSULE.DR PO SCH (09:25)
[2019-02-08] MEDS: metFORMIN 500 MG TAB PO SCH (09:25)
[2019-02-08] MEDS: HEPARIN SODIUM,PORCINE 5,000 UNIT/ML 1 ML VIAL SQ SCH (09:25)
[2019-02-08] MEDS: POTASSIUM CHLORIDE ER 20 MEQ TAB.ER PO SCH (09:25)
[2019-02-08] MEDS: CLOPIDOGREL 75 MG TAB PO SCH (09:26)
[2019-02-08] MEDS: ATORVASTATIN 40 MG TAB PO SCH (09:26)
[2019-02-08] MEDS: lamoTRIgine 100 MG TAB PO SCH (09:26)
[2019-02-08] MEDS: TORSEMIDE 20 MG TAB PO SCH (09:26)
[2019-02-08] MEDS: INSULIN DETEMIR (LEVEMIR) 100 UNIT/ML SYR SQ SCH (09:31)
[2019-02-08 11:22] VITALS: BP 108/78
[2019-02-08 11:34] LABS: Glucose,Whole Blood 178 mg/dL (75-99)
--- NOTE | 2019-02-08 12:29 | P.PN ---
Subjective Progress Note Date: 02/08/19 Principal diagnosis: CVA No events O/N. Continued therapy this am. Numbness unchanged. No new neuro c/o. Objective - Vital Signs Vital signs: Vital Signs Temp 98.4 F 02/08/19 08:00 Pulse 92 02/08/19 08:00 Resp 16 02/08/19 08:00 BP 108/78 02/08/19 08:00 Pulse Ox 93 L 02/08/19 08:00 Intake & Output 02/07/19 02/08/19 02/08/19 18:59 06:59 18:59 Intake Total 720 240 Output Total 900 Balance -180 240 Weight 122.7 kg Intake: Oral 720 240 Output: Urine 900 Other: Voiding Method Toilet Toilet # Voids 1 2 - Exam Gen NAD Pleasant and cooperative Neuro MS A+Ox4 Normal fluency Able to follow all commands CN PERRL VFF no APD EOMI no nystagmus or NEVAEH Right V1-3 diminished to No facial asymmetry Masseter's symmetric Hearing intact to normal voice bilaterally Speech not dysarthric Equal elevation of palate Tongue midline Sym shrug and SCM bilaterally Motor Normal bulk/tone No pronator or leg drift or tremors Strength 5/5 sym throughout Sens Diminished to LT throughout right No neglect or extinction Coord Mild sensory ataxia on right FTN DTRs Tr sym throughout Toes downgoing bilaterally No clonus at achilles Gait Deferred NIHSS 2 - Labs CBC & Chem 7: 02/07/19 06:29 02/07/19 06:29 Labs: Abnormal Lab Results - Last 24 Hours (Table) 02/07/19 02/07/19 02/08/19 Range/Units 16:36 20:19 05:42 POC Glucose (mg/dL) 106 H 154 H 197 H (75-99) mg/dL 02/08/19 Range/Units 11:33 POC Glucose (mg/dL) 178 H (75-99) mg/dL - Imaging and Cardiology MRI - head: report reviewed (MRI Brain wo ganga 02/07/19. +DWI in left thalamus c/w acute ischemic infarct.) Assessment and Plan Assessment: Right hemianesthesia with contralateral thalamic ischemic infarct, subacute, likely due to copious vascular risk factors/intracranial ather osclerosis/thrombosis. Plan: -Clopidogrel 75mg po qd. -May treat BP to normotensive range given he is one week out from the onset of his CVA. -Goals BP <130/80, hga1c <7.0 and LDL <70 -Continue to abstain from tobacco -MRI Brain wo ganga reviewed with patient -TTE report still pending. Unofficial report is no PFO or cardiac dysfunction. -PT/OT/SP per protocol -DVT prophylaxis: Heparin SC -d/w patient in detail. All questions answered. -May discharge from neuro standpoint after TTE report available. Thank you again for this consultation. Please call with ?. Time with Patient: Less than 30 (Time spent in direct patient care, greater than 50% of which was spent in [id number] counseling and coordination of care: 25 minutes.)
[2019-02-08 14:13] VITALS: BMI 46.4
[2019-02-08 15:06] VITALS: PULSE 90; RESP 14
--- NOTE | 2019-02-08 15:54 | ECHOF ---
Referral Reason:CVA MEASUREMENTS -------- HEIGHT: 162.6 cm WEIGHT: 125.2 kg BP: 125/78 RVIDd: 3.4 cm (< 3.3) IVSd: 1.9 cm (0.6 - 1.1) LVIDd: 3.5 cm (3.9 - 5.3) LVPWd: 1.8 cm (0.6 - 1.1) IVSs: 2.4 cm LVIDs: 2.3 cm LVPWs: 2.4 cm LAESV Index (A-L): 23.63 ml/m Ao Diam: 3.8 cm (2.0 - 3.7) AV Cusp: 1.9 cm (1.5 - 2.6) LA Diam: 3.9 cm (2.7 - 3.8) MV EXCURSION: 14.447 mm (> 18.000) MV EF SLOPE: 69 mm/s (70 - 150) EPSS: 1.3 cm MV E Dg: 0.70 m/s MV DecT: 207 ms MV A Dg: 0.99 m/s MV E/A Ratio: 0.71 RAP: 5.00 mmHg RVSP: 22.41 mmHg FINDINGS -------- Sinus rhythm. This was a technically adequate study. The left ventricular size is normal. There is severe concentric left ventricular hypertrophy. Ove rall left ventricular systolic function is normal with, an EF between 60 - 65 %. The right ventricle is mildly enlarged. Normal LA size by volume 22+/-6 ml/m2. The right atrial size is normal. Contrast study was performed with 2 iv injections of 8 ccs of agitated normal saline, at rest, and wi th cough. Interatrial and interventricular septum intact. The aortic valve is trileaflet and appears structurally normal. Mild mitral annular calcification present. There is trace mitral regurgitation. Mild tricuspid regurgitation present. There is no evidence of pulmonary hypertension. The right v entricular systolic pressure, as measured by Doppler, is 22.41mmHg. Trace/mild (physiologic) pulmonic regurgitation. The aortic root size is normal. Normal inferior vena cava with normal inspiratory collapse consistent with estimated right atrial pre ssure of 5 mmHg. Echo free space represents a pericardial fat pad. CONCLUSIONS -------- 1. Sinus rhythm. 2. This was a technically adequate study. 3. The left ventricular size is normal. 4. There is severe concentric left ventricular hypertrophy. 5. Overall left ventricular systolic function is normal with, an EF between 60 - 65 %. 6. The right ventricle is mildly enlarged. 7. Normal LA size by volume 22+/-6 ml/m2. 8. The right atrial size is normal. 9. Contrast study was performed with 2 iv injections of 8 ccs of agitated normal saline, at rest, and with cough. 10. Interatrial and interventricular septum intact. 11. The aortic valve is trileaflet and appears structurally normal. 12. Mild mitral annular calcification present. 13. There is trace mitral regurgitation. 14. Mild tricuspid regurgitation present. 15. There is no evidence of pulmonary hypertension. 16. The right ventricular systolic pressure, as measured by Doppler, is 22.41mmHg. 17. Trace/mild (physiologic) pulmonic regurgitation. 18. The aortic root size is normal. 19. Normal inferior vena cava with normal inspiratory collapse consistent with estimated right atrial pressure of 5 mmHg. 20. Echo free space represents a pericardial fat pad. [employer]ER: Chapis Joel RDCS
--- NOTE | 2019-02-08 22:17 | DS ---
DISCHARGE SUMMARY DATE OF SERVICE: 02/08/2019. FINAL DIAGNOSES: 1. Acute right-sided numbness, possibly thalamic stroke with sensory stroke involving the left hemisphere. 2. Diabetes type 2, uncontrolled with hyperglycemia. 3. Hypercalcemia. 4. Increased creatinine kinase. 5. Hyponatremia, mild. 6. Chronic obstructive pulmonary disease. 7. Diabetes type 2. 8. History of gastroesophageal reflux disease. 9. Hypertension. 10.Hyperlipidemia. 11.History of degenerative joint disease. 12.History of peripheral neuropathy. 13.History of peripheral vascular disease. 14.History of varicose veins. 15.History of depression. 16.Remote history of nicotine dependence. DISCHARGE DISPOSITION: The patient is being discharged in stable condition with guarded prognosis. HISTORY OF PRESENT ILLNESS: This 58-year-old gentleman with a past medical history of multiple medical problems was admitted with numbness of the right side of the body. MRI showed a thalamic stroke on the left side. The patient was seen by Neurology. Neurovascular workup is basically negative. Sugars are 178. Patient improved significantly. Patient discharged home in stable condition with guarded prognosis. On exam, vital signs are stable. Cardiovascular: Abdomen soft, nontender. Nervous system: Right-sided numbness present. DISCHARGE ADVICE AND MEDICATIONS: 1. Diet is cardiac diet. 2. Activity limited until followup. 3. Follow up with Dr. Talley 2-3 days. 4. Follow up with Dr. Pennington in 1 week. DISCHARGE MEDICATIONS: 1. Cymbalta 90 mg p.o. daily. 2. Demadex 40 mg p.o. daily. 3. Flomax 0.4 daily. 4. Glucophage 1000 mg p.o. b.i.d. 5. K-Dur 20 mEq p.o. daily. 6. Lamictal 200 mg p.o. daily. 7. Lantus 30 units subcu b.i.d. 8. Lipitor 40 mg p.o. daily. 9. Losartan 100 mg p.o. daily. 10.NovoLog FlexPen 16 units a.c. t.i.d. and 8 units subcu q.h.s. 11.Omeprazole 40 mg p.o. b.i.d. 12.QVAR 80 mcg b.i.d. 13.Albuterol 1-2 puffs q.6h p.r.n. 14.Zaroxolyn 10 mg p.o. daily. 15.Zofran 8 mg daily p.r.n. 16.Plavix 75 mg p.o. daily. Once again, the patient is being discharged in stable condition with guarded prognosis. MMODL / IJN: [id number] /
== END 2019-02-08 16:35 | disposition home or self-care (01) | DRG 65 ==
LOC: EC 10:54 → 3SCARD 13:09
PROVIDERS: ADMIT Hospitalist; ATTEND Hospitalist
DX: I63.89 Other cerebral infarction (principal); E87.1 Hypo-osmolality and hyponatremia; R47.1 Dysarthria and anarthria; R29.810 Facial weakness; R29.701 NIHSS score 1; Z87.891 Personal history of nicotine dependence; E11.51 Type 2 diabetes mellitus with diabetic peripheral angiopathy without gangrene; E11.42 Type 2 diabetes mellitus with diabetic polyneuropathy; Z79.4 Long term (current) use of insulin; E11.65 Type 2 diabetes mellitus with hyperglycemia; E78.5 Hyperlipidemia, unspecified; E83.52 Hypercalcemia; I10 Essential (primary) hypertension; I67.2 Cerebral atherosclerosis; J44.9 Chronic obstructive pulmonary disease, unspecified; K21.9 Gastro-esophageal reflux disease without esophagitis; M19.90 Unspecified osteoarthritis, unspecified site; Z79.51 Long term (current) use of inhaled steroids; Z79.82 Long term (current) use of aspirin; Z79.899 Other long term (current) drug therapy; Z82.49 Family history of ischemic heart disease and other diseases of the circulatory system; Z83.3 Family history of diabetes mellitus; Z86.010 Personal history of colon polyps; R20.0 Anesthesia of skin
CPT/HCPCS: 36415; 70450; 70496; 70498; 70551; 71046; 80048; 80053; 80061; 80175; 81003; 82550; 84484; 85025; 85610; 85730; 93005; 93306; 94640; 96360; 96361; 99285

== ENCOUNTER → 2019-02-22 | Outpatient (CLI) | payer MEDICARE ==
[2019-02-22 09:59] LABS: Basophils # (A) 0.1 k/uL (0-0.2); Basophils % (A) 1 %; Eosinophils # (A) 0.2 k/uL (0-0.7); Eosinophils % (A) 3 %; HCT 50.9 % (39.0-53.0); HGB 16.7 gm/dL (13.0-17.5); Lymphocytes # (A) 1.7 k/uL (1.0-4.8); Lymphocytes % (A) 22 %; MCH 29.9 pg (25.0-35.0); MCHC 32.7 g/dL (31.0-37.0); MCV 91.2 fL (80.0-100.0); Mean Platelet Volume 7.9; Monocytes # (A) 0.6 k/uL (0-1.0); Monocytes % (A) 7 %; Neutrophils # (A) 5.2 k/uL (1.3-7.7); Neutrophils % (A) 66 %; Platelet Count 308 k/uL (150-450); RBC 5.59 m/uL (4.30-5.90); RDW 13.1 % (11.5-15.5); WBC 7.8 k/uL (3.8-10.6)
[2019-02-22 16:23] LABS: Vitamin D 25 Hydroxy 18.9 ng/mL (30.0-100.0)
[2019-02-22 17:07] LABS: African American GFR (CKD) 64.2 (60.0-200.0); Anion Gap 13.9 mmol/L (4.00-12.00); BUN/Creat Ratio 23.57 Ratio (12.00-20.00); Calcium 10.2 mg/dL (8.7-10.3); Carbon Dioxide 27.1 mmol/L (21.6-31.8); Magnesium 1.6 mg/dL (1.5-2.4); Potassium 3.7 mmol/L (3.5-5.5)
== END | disposition home or self-care (01) ==
LOC: LABWHC1 09:42
PROVIDERS: ATTEND Internal Medicine
DX: E83.52 Hypercalcemia (principal); K21.0 Gastro-esophageal reflux disease with esophagitis; I63.9 Cerebral infarction, unspecified
CPT/HCPCS: 36415; 80048; 82306; 82330; 83735; 83970; 85025

== ENCOUNTER 2019-05-03 06:40 | Day surgery (SDC) | payer MEDICARE ==
[2019-05-01 15:47] VITALS: BMI 46.3
[~2019-05-03 06:40] MED LIST changes: +LIDOCAINE 1% 20 ML VIAL (10MG/ML) FOR IV START INTRADERMA PRN
[2019-05-03 07:17] VITALS: TEMP 97.5
[2019-05-03 07:24] LABS: Glucose,Whole Blood 71 mg/dL (75-99)
[2019-05-03] MEDS ORDERED: GLYCOPYRROLATE 0.2 MG/ML 2 ML VIAL ONE (07:40)
[2019-05-03] MEDS ORDERED: PROPOFOL 10 MG/ML 20 ML VIAL IV ONE (07:40)
[2019-05-03] MEDS ORDERED: LIDOCAINE 1% INJ 10MG/ML (20 ML MDV) ONE (07:40)
[2019-05-03 08:37] VITALS: RESP 18
--- NOTE | 2019-05-03 08:39 | P.PCN ---
Date of Procedure: 05/03/19 Description of Procedure: Brief history: Patient is a pleasant scheduled for an elective upper endoscopy as well as colonoscopy as a part of evaluation of Asencio's esophagus and colon polyps with poor prep. Patient had been brought in for colonoscopy at which time for adenomas removed to remove large amounts of solid stools found on colonoscopy. Also has a history of gastroesophageal reflux disease on PPI therapy with metaplasia found on last EGD. Procedure performed: Esophagogastroduodenoscopy with biopsy Colonoscopy with polypectomy Estimated blood loss: Minimal. Preoperative diagnosis: Anesthesia: MAC Procedure: After informed consent was obtained from the patient was brought into the endoscopy unit and IV sedation was administered by anesthesia under continuous monitoring. Initially upper endoscopy was done. The Olympus GF 190 video endoscope was inserted inserted into the mouth and esophagus intubated without any difficulty and was gradually advanced into the stomach and duodenum and carefully examined. The bulb and second part of the duodenum appeared normal, with biopsy. The scope was then withdrawn into the stomach adequately insufflated with air and upon careful examination the antrum and body, cardia and fundus appeared normal, except for erythema and some superficial erosions in the antrum suggestive of mild gastritis with biopsies of the antrum and body taken. The scope was then withdrawn into the esophagus. The GE junction was located at 41 cm to the incisors. It appeared regular with no erythema erosions or ulcerations, findings in the distal esophagus consistent with short segment Asencio's with biopsies distal esophagus taken. Rest of the esophagus appeared normal. Patient tolerated the procedure well. At this time the patient continued to remain sedation. Initial digital rectal examination was normal. Olympus CF 190 video colonoscope was then inserted into the rectum and gradually advanced to the cecum without any difficulty. Careful examination was performed as the scope was gradually being withdrawn. The prep was good. The cecum, ascending colon, transverse colon, descending colon, sigmoid colon and rectum appeared normal. 11 diminutive sessile polyp measuring 1 mm in the cecum, 2 polyps measuring 2 mm in the ascending colon, 3 polyps measuring 2-3 mm in the hepatic flexure, 3 polyps measuring 2-3 mm in the transverse colon, and 2 polyps measuring 2 mm in the descending colon all removed with cold forcep polypectomy. Retroflexion was performed in the rectum and no lesions were noted, mild internal hemorrhoids seen. Patient tolerated the procedure well. Impression: 1. Mild antral gastritis with biopsies of the antrum and body taken. Duodenal biopsies. Short segment Asencio's biopsies of the distal esophagus taken. 2. 11 diminutive polyps taken from the cecum, ascending colon, hepatic flexure, transverse colon and descending colon with cold forcep polypectomy. Recommendations: Findings of this examination were discussed with the patient as well as his family. Okay to resume diet. Okay to resume Plavix tomorrow. Anticipate repeat colonoscopy in 1-3 years pending pathology from polypectomies. Would recommend 2 day prep with next colonoscopy with improved overall prep today.
[2019-05-03 08:52] VITALS: BP 150/78; PULSE 79
== END 2019-05-03 09:15 | disposition home or self-care (01) ==
LOC: ORWHC2ENDO 06:40
PROVIDERS: ATTEND Internal Medicine
DX: Z12.11 Encounter for screening for malignant neoplasm of colon (principal); K22.70 Barrett's esophagus without dysplasia; D12.2 Benign neoplasm of ascending colon; D12.3 Benign neoplasm of transverse colon; K63.5 Polyp of colon; K29.50 Unspecified chronic gastritis without bleeding; K31.89 Other diseases of stomach and duodenum; I11.9 Hypertensive heart disease without heart failure; E78.5 Hyperlipidemia, unspecified; J44.9 Chronic obstructive pulmonary disease, unspecified; E11.9 Type 2 diabetes mellitus without complications; I69.398 Other sequelae of cerebral infarction; M19.90 Unspecified osteoarthritis, unspecified site; Z87.891 Personal history of nicotine dependence; Z82.49 Family history of ischemic heart disease and other diseases of the circulatory system; E66.01 Morbid (severe) obesity due to excess calories; Z68.42 Body mass index [BMI] 45.0-49.9, adult; I08.1 Rheumatic disorders of both mitral and tricuspid valves; I63.81 Other cerebral infarction due to occlusion or stenosis of small artery; Z79.02 Long term (current) use of antithrombotics/antiplatelets; Z79.4 Long term (current) use of insulin; Z79.51 Long term (current) use of inhaled steroids; Z79.899 Other long term (current) drug therapy
CPT/HCPCS: 88305; 45380; 43239; J2001; J2704

== ENCOUNTER 2019-07-13 06:57 | Day surgery (SDC) | payer MEDICARE ==
[2019-07-09 14:23] VITALS: BMI 48.0
--- NOTE | 2019-07-11 16:23 | HP ---
HISTORY AND PHYSICAL CHIEF COMPLAINT: Right knee pain. HISTORY OF PRESENT ILLNESS: The patient is a 59-year-old male on disability who presents with progressive right knee pain, worsening over the past several months. He notes intermittent giving-way and swelling. He has been ambulating with a cane. He has tried medications in addition to a previous injection. He notes the pain significantly limits his normal function and activities. PAST MEDICAL HISTORY: His past medical history is significant for: 1. COPD. 2. Type 2 diabetes. 3. Arthritis. 4. Hyperlipidemia. 5. Hypertension. 6. Previous stroke. PAST SURGICAL HISTORY: Past surgical history is significant for hernia repair in addition to previous jaw tumor removal. CURRENT MEDICATIONS: 1. Albuterol inhaler. 2. Atorvastatin. 3. Losartan. 4. Metformin. 5. Insulin. 6. Omeprazole. ALLERGIES: HE DENIES DRUG ALLERGIES. FAMILY HISTORY: Significant for diabetes and heart disease. SOCIAL HISTORY: Significant for tobacco use; however, he quit in 1988. REVIEW OF SYSTEMS: Sixteen-point review of systems otherwise reviewed and is noncontributory. PHYSICAL EXAMINATION: On examination, the patient is approximately 5 feet 4 inches, 280 pounds of endomorphic habitus. HEENT exam is nonfocal. NECK: Supple. He has painless passive motion of the right hip. Uhenuylf-ohc-xleum is negative. Active motion right knee minus 8 to 105 degrees of flexion. He has mild effusion. He is tender about the lateral greater than medial joint line. Collaterals are stable, Kun is negative. Tisha's elicits medial pain. He has bilateral venostasis changes. His distal neurovascular exam appears intact in the right lower extremity. IMAGING: Previous MRI of the right knee obtained 02/17/2019 by report shows a complex tear involving the posterior horn of the medial meniscus in addition to possible chondral injury involving the distal medial femoral condyle. IMPRESSION: 1. Right knee internal derangement with symptomatic medial meniscal tear. 2. Right knee moderate medial patellofemoral compartment osteoarthrosis. 3. Morbid obesity. 4. Insulin-dependent diabetes with neuropathy. RECOMMENDATIONS: I talked to the patient at length regarding his condition and treatment options. At this point he is quite symptomatic despite conservative measures and wants to proceed with surgery. We will plan to proceed with arthroscopy of the right knee and possible partial medial meniscectomy in addition to microfracture of the medial femoral condyle. Risks and benefits were discussed at length in layman's terms. He underwent preoperative medical and cardiac clearance. MMODL / IJN: [id number] /
[~2019-07-13 06:57] MED LIST changes: +DEXAMETHASONE SOD PHOSPHATE 10 MG/ML 1 ML VIAL IV ONE; +ONDANSETRON 4 MG/2 ML VIAL IVP ONE; +ceFAZolin 3 GM in SODIUM CHLORIDE 0.9% 100 ML IVPB ONE; +fentaNYL (PF) 50 MCG/ML 2 ML AMP IV PRN
[2019-07-13 07:14] VITALS: TEMP 97.7
[2019-07-13 07:21] LABS: Glucose,Whole Blood 197 mg/dL (75-99)
[2019-07-13] MEDS ORDERED: LACTATED RINGERS 1,000 ML IV ONE (07:23)
[2019-07-13] MEDS ORDERED: MIDAZOLAM 2 MG/2 ML VIAL ONE (07:55)
[2019-07-13] MEDS ORDERED: KETOROLAC 30 MG/ML 1 ML VIAL ONE (07:55)
[2019-07-13] MEDS ORDERED: HYDROmorphone (PF) 1 MG/ML ONE (07:55)
[2019-07-13] MEDS ORDERED: fentaNYL (PF) 50 MCG/ML 2 ML AMP ONE (07:55)
[2019-07-13] MEDS ORDERED: SUCCINYLCHOLINE CHLORIDE 100 MG/5 ML SYR IV ONE (07:55)
[2019-07-13] MEDS ORDERED: LIDOCAINE 1% INJ 10MG/ML (20 ML MDV) ONE (07:55)
[2019-07-13] MEDS ORDERED: PROPOFOL 10 MG/ML 20 ML VIAL IV ONE (07:55)
[2019-07-13] MEDS ORDERED: EPINEPHrine (PF) 1 ML in SODIUM CHLORIDE 0.9% IRRIGATIO 3,000 ML IRRIGATION ONE ×4 (08:18)
--- NOTE | 2019-07-13 08:54 | P.OP ---
Date of Procedure: 07/13/19 Preoperative Diagnosis: Right knee internal derangement Postoperative Diagnosis: Right knee posterior medial meniscal tear/posterior lateral meniscal tear/reactive synovitis of the medial, lateral, and patellofemoral compartments. Procedure(s) Performed: Right knee arthroscopic partial medial meniscectomy/partial lateral meniscectomy/partial synovectomy of the medial, lateral, and patellofemoral compartments. Anesthesia: GETA Surgeon: Nik Victor Estimated Blood Loss (ml): 10 Pathology: none sent Condition: stable Disposition: PACU Indications for Procedure: The patient is a 59-year-old male who presents with progressive right knee pain and mechanical symptoms despite conservative measures. A discussion of the risks and benefits of operative intervention versus continued conservative measures was made with the patient. He opted to proceed with surgery. Operative risks to include infection, neurovascular injury, development of blood clots, possible incomplete resolution of symptoms, possible worsening symptoms and need for subsequent procedures was discussed. Informed consent was obtained. Operative Findings: As below Description of Procedure: The patient was brought to the operating room, and after induction of general anesthesia examined the right knee. Collaterals were stable, Kun was negative, and posterior drawer was negative. The right lower extremity was prepped and draped in a normal fashion. A lateral portal was made through a 5 mm vertical skin incision lateral to the patella tendon above the joint line. Diagnostic arthroscopy was performed. On inspection of the medial compartment, and oblique tear involving the middle one third extending to the posterior one third was noted in the white-white junction. This was debrided back to stable base with straight baskets and a motorized shaver. Significant reactive synovitis was debrided with a motorized shaver. On inspection of the notch, the anterior cruciate ligament appeared to be intact. On inspection of the lateral compartment, a radial tear involving the middle one third in the white-white junction was noted. This was treated debrided back to a stable base with straight baskets and a motorized shaver. Reactive synovitis was debrided with a motorized shaver. On inspection of the patellofemoral articulation, there was grade 2-3 chondral changes diffusely. Reactive synovitis was debrided with a motorized shaver.. The gutters were clear debris. The knee was then thoroughly irrigated. The portals were closed with Steri-Strips. A sterile dressing was applied in addition to a compression stocking. The patient was awoken from general anesthesia and transferred to recovery room in good condition. Blood loss was estimated at 10 mL. No complications were incurred.
[2019-07-13 09:06] LABS: Glucose,Whole Blood 191 mg/dL (75-99)
[2019-07-13] MEDS: HYDROmorphone 1 MG/ML 1 ML SYRINGE IVP ONE ×2 (09:07→09:17)
[2019-07-13] MEDS ORDERED: HYDROcodone/APAP 5-325MG 1 EACH TAB PO ONE (10:17)
[2019-07-13 10:35] VITALS: RESP 18
[2019-07-13 11:13] VITALS: BP 156/78; PULSE 73
== END 2019-07-13 11:35 | disposition home or self-care (01) ==
LOC: OR 06:57
PROVIDERS: ATTEND Orthopaedic Surgery
DX: M23.221 Derangement of posterior horn of medial meniscus due to old tear or injury, right knee (principal); M23.200 Derangement of unspecified lateral meniscus due to old tear or injury, right knee; M65.861 Other synovitis and tenosynovitis, right lower leg; M17.11 Unilateral primary osteoarthritis, right knee; I10 Essential (primary) hypertension; J44.9 Chronic obstructive pulmonary disease, unspecified; E78.2 Mixed hyperlipidemia; K21.9 Gastro-esophageal reflux disease without esophagitis; E11.40 Type 2 diabetes mellitus with diabetic neuropathy, unspecified; E66.01 Morbid (severe) obesity due to excess calories; Z86.73 Personal history of transient ischemic attack (TIA), and cerebral infarction without residual deficits; Z79.51 Long term (current) use of inhaled steroids; Z79.02 Long term (current) use of antithrombotics/antiplatelets; Z79.4 Long term (current) use of insulin; Z79.899 Other long term (current) drug therapy; Z98.890 Other specified postprocedural states; Z87.891 Personal history of nicotine dependence; Z83.3 Family history of diabetes mellitus; Z82.49 Family history of ischemic heart disease and other diseases of the circulatory system; Z68.42 Body mass index [BMI] 45.0-49.9, adult
CPT/HCPCS: 84132; 29880; J2250; J1100; J0690; J2405; J0171; J2001; J3010; J1885; J1170; J0330; J2704

== ENCOUNTER → 2020-01-17 | Outpatient (CLI) | payer MEDICARE ==
[2020-01-17 12:34] LABS: Basophils # (A) 0.1 k/uL (0-0.2); Basophils % (A) 1 %; Eosinophils # (A) 0.3 k/uL (0-0.7); Eosinophils % (A) 3 %; HCT 54.7 % (39.0-53.0); HGB 17.8 gm/dL (13.0-17.5); Lymphocytes # (A) 2.8 k/uL (1.0-4.8); Lymphocytes % (A) 28 %; MCH 29.6 pg (25.0-35.0); MCHC 32.6 g/dL (31.0-37.0); MCV 90.9 fL (80.0-100.0); Mean Platelet Volume 8.8; Monocytes % (A) 9 %; Neutrophils # (A) 5.9 k/uL (1.3-7.7); Neutrophils % (A) 57 %; Platelet Count 272 k/uL (150-450); RBC 6.01 m/uL (4.30-5.90); RDW 12.9 % (11.5-15.5); WBC 10.3 k/uL (3.8-10.6)
== END | disposition home or self-care (01) ==
LOC: LABWHC1 10:19
PROVIDERS: ATTEND Orthopaedic Surgery
DX: Z01.818 Encounter for other preprocedural examination (principal); M23.92 Unspecified internal derangement of left knee; Z11.59 Encounter for screening for other viral diseases
CPT/HCPCS: 85025; 93005; 36415; U0003

== ENCOUNTER 2020-01-18 06:33 | Day surgery (SDC) | payer MEDICARE ==
--- NOTE | 2020-01-17 10:07 | HP ---
HISTORY AND PHYSICAL CHIEF COMPLAINT: Left knee pain. HISTORY OF PRESENT ILLNESS: The patient is a 59-year-old gentleman who presents with progressive left knee pain after a previous giving way episode. He notes medial pain and occasional giving out. He has problems with prolonged weightbearing. He had a previous injection with minimal relief. He is using a cane currently. PAST MEDICAL HISTORY: Significant for COPD, type 2 diabetes, hypertension, hyperlipidemia. PAST SURGICAL HISTORY: Significant for previous right knee arthroscopy. CURRENT MEDICATIONS: Albuterol inhaler, atorvastatin, losartan, metformin, insulin, omeprazole. He denies drug allergies. FAMILY HISTORY: Significant for heart disease and diabetes. SOCIAL HISTORY: Significant for previous tobacco use. 16 POINT REVIEW OF SYSTEMS: Otherwise reviewed and is noncontributory. PHYSICAL EXAMINATION: On examination, the patient is approximately 5 foot 4, 280 pounds of endomorphic habitus. HEENT: Exam is nonfocal. NECK: Supple. He has painless passive motion of the left hip. Straight leg raise is negative. Active motion left knee -10 to 110 degrees of flexion. He has a mild effusion. He is tender about the medial joint line. Collaterals are stable, Kun is negative, Tisha's elicits medial pain. His distal neurovascular exam appears intact in the left lower extremity. MRI report left knee shows evidence of a posterior medial meniscal tear along with ACL partial tear. IMPRESSION: 1. Left knee internal derangement with symptomatic medial meniscal tear #1. 2. Left knee ACL sprain. 3. Left knee moderate medial compartment osteoarthrosis. 4. Obesity. RECOMMENDATIONS: I talked to the patient at length regarding his condition and treatment options. At this point, he is having pain and mechanical symptoms despite conservative measures. After thorough discussion, he opts to proceed with surgery. We will plan to proceed with left knee arthroscopy with possible partial medial meniscectomy. Risks and benefits were discussed at length in layman's terms. We will likely perform that as an outpatient procedure. MMODL / IJN: [id number] /
[2020-01-17 10:23] VITALS: BMI 48.0
[~2020-01-18 06:33] MED LIST changes: -LIDOCAINE 1% 20 ML VIAL (10MG/ML) FOR IV START INTRADERMA PRN; +MIDAZOLAM 2 MG/2 ML VIAL IV PRN; +SCOPOLAMINE 1.5MG/72HR PATCH TRANSDERM ONE; -ceFAZolin 3 GM in SODIUM CHLORIDE 0.9% 100 ML IVPB ONE; -fentaNYL (PF) 50 MCG/ML 2 ML AMP IV PRN
[2020-01-18 07:05] LABS: Glucose,Whole Blood 256 mg/dL (75-99)
[2020-01-18] MEDS ORDERED: LIDOCAINE 1% (10MG/ML) FOR IV START INTRADERMA ONE (07:07)
[2020-01-18] MEDS ORDERED: INSULIN ASPART (NovoLOG) 100 UNIT/ML VIAL SQ ONE (07:11)
[2020-01-18 07:19] VITALS: TEMP 98.1
[2020-01-18 07:34] LABS: Potassium 3.9 mmol/L (3.5-5.1)
[2020-01-18] MEDS ORDERED: MIDAZOLAM 2 MG/2 ML VIAL ONE (07:46)
[2020-01-18] MEDS ORDERED: PROPOFOL 10 MG/ML 20 ML VIAL IV ONE (07:46)
[2020-01-18] MEDS ORDERED: LIDOCAINE 1% INJ 10MG/ML (20 ML MDV) ONE (07:46)
[2020-01-18] MEDS ORDERED: fentaNYL (PF) 50 MCG/ML 2 ML AMP ONE (07:46)
[2020-01-18] MEDS ORDERED: SUCCINYLCHOLINE CHLORIDE VIAL 200 MG/10 ML VIAL IV ONE (07:46)
[2020-01-18] MEDS ORDERED: ceFAZolin 1,000 MG VIAL IVPB ONE (08:05)
--- NOTE | 2020-01-18 08:49 | P.OP ---
Date of Procedure: 01/18/20 Preoperative Diagnosis: Left knee internal derangement Postoperative Diagnosis: Left knee posterior medial meniscal tear/posterior lateral meniscal tear/grade 3 chondral injury posterior medial femoral condyle Procedure(s) Performed: Left knee arthroscopic partial medial meniscectomy/partial lateral meniscectomy/medial femoral chondrectomy with microfracture medial femoral condyle Anesthesia: EVY Surgeon: Nik Victor Estimated Blood Loss (ml): 10 Pathology: none sent Condition: stable Disposition: PACU Indications for Procedure: The patient's a 59-year-old male who presents with progressive left knee pain and mechanical symptoms despite conservative measures. A discussion of the risks and benefits of operative intervention versus continued conservative measures was made with patient. He opted to pursue surgery. Operative risks to include infection, neurovascular injury, development of blood clots, possible incomplete resolution of symptoms, possible worsening symptoms and need for subsequent procedures was discussed. Informed consent was obtained. Operative Findings: As below Description of Procedure: The patient was brought to the operating room, and after induction of general anesthesia examined the left knee. Collaterals were stable, Kun was negative, and posterior drawer was negative. The left lower extremity was prepped and draped in a normal fashion. A superior lateral portal was made through a 3 mm skin incision superior and lateral to the patella. This was used for outflow. A lateral portal was made through a 5 mm vertical skin incision lateral to the patella tendon above the joint line. Diagnostic arthroscopy was performed. On inspection of the medial compartment, a complex tear involving the posterior horn of the medial meniscus was noted in the white-red junction. This was debrided back to stable base with straight baskets and a motorized shaver. A corresponding grade 3 chondral injury was noted involving the posterior lateral portion of the medial femoral condyle. There is a loose chondral flap. This was debrided back to a stable base with a motorized shaver. Microfracture was performed with a power pick breeching the subchondral surface down to the bone marrow elements. On inspection of the notch, the anterior cruciate ligament appeared to be intact. On inspection of the lateral compartment, and degenerative tear involving the middle to posterior one third was noted in the white-white junction. This was debrided back to stable base with straight baskets and a motorized shaver. On inspection of the patellofemoral articulation, there grade 2 chondral changes diffusely however no loose chondral fragments. The gutters were clear debris. The knee was then thoroughly irrigated. The portals were closed with Steri-Strips. A sterile dr essing was applied in addition to a compression stocking. The patient was awoken from general anesthesia and transferred to recovery room in good condition. Blood loss was estimated at 10 mL. No complications were incurred.
[2020-01-18] MEDS: HYDROmorphone 0.5 MG/0.5 ML SYRINGE IVP PRN ×2 (08:59→09:04)
[2020-01-18] MEDS ORDERED: LACTATED RINGERS 1,000 ML IV ONE (09:14)
[2020-01-18 09:20] LABS: Glucose,Whole Blood 218 mg/dL (75-99)
[2020-01-18 09:32] VITALS: RESP 16
[2020-01-18] MEDS ORDERED: HYDROcodone/APAP 5-325MG 1 EACH TAB PO ONE (10:00)
[2020-01-18 10:18] VITALS: BP 104/65; PULSE 94
== END 2020-01-18 10:45 | disposition home or self-care (01) ==
LOC: OR 06:33
PROVIDERS: ATTEND Orthopaedic Surgery
DX: S83.242A Other tear of medial meniscus, current injury, left knee, initial encounter (principal); S83.282A Other tear of lateral meniscus, current injury, left knee, initial encounter; S83.32XA Tear of articular cartilage of left knee, current, initial encounter; X58.XXXA Exposure to other specified factors, initial encounter; J44.9 Chronic obstructive pulmonary disease, unspecified; E11.9 Type 2 diabetes mellitus without complications; I10 Essential (primary) hypertension; E78.5 Hyperlipidemia, unspecified; Z82.49 Family history of ischemic heart disease and other diseases of the circulatory system; Z83.3 Family history of diabetes mellitus; Z87.891 Personal history of nicotine dependence; J45.909 Unspecified asthma, uncomplicated; I69.351 Hemiplegia and hemiparesis following cerebral infarction affecting right dominant side; K21.9 Gastro-esophageal reflux disease without esophagitis; Z79.02 Long term (current) use of antithrombotics/antiplatelets; Z79.4 Long term (current) use of insulin; Z79.899 Other long term (current) drug therapy
CPT/HCPCS: 29880; 29879; 80051; J2250; J0330; J1100; J2405; J0690; J2001; J3010; J2704; J1170

== ENCOUNTER → 2020-05-27 | Day surgery (SDC) | payer MEDICARE ==
[2020-05-23 09:22] VITALS: BMI 48.0
[~2020-05-27] MED LIST changes: -DEXAMETHASONE SOD PHOSPHATE 10 MG/ML 1 ML VIAL IV ONE; +LACTATED RINGERS 1,000 ML IV ONE; +LIDOCAINE 1% (10MG/ML) FOR IV START INTRADERMA PRN; -ONDANSETRON 4 MG/2 ML VIAL IVP ONE; +PROPOFOL 10 MG/ML 20 ML VIAL IV ONE; -SCOPOLAMINE 1.5MG/72HR PATCH TRANSDERM ONE
[2020-05-27 07:12] VITALS: TEMP 97.6
[2020-05-27 07:39] LABS: Glucose,Whole Blood 88 mg/dL (75-99)
[2020-05-27 08:26] VITALS: RESP 20
--- NOTE | 2020-05-27 08:29 | P.PCN ---
Date of Procedure: 05/27/20 Description of Procedure: BRIEF HISTORY: Patient is a 60-year-old male with a medical history significant for colon polyps presenting for outpatient colonoscopy for evaluation of high risk polyps. Patient is a history of colon polyps in the past with for adenomas removed on recent colonoscopy and an additional 11 colon polyps on repeat colonoscopy in 2019. Denies any change in bowel habits, blood per rectum or abdominal pain. PROCEDURE PERFORMED: Colonoscopy with polypectomy. PREOPERATIVE DIAGNOSIS: Her colon polyps, personal history of colon polyps, last colonoscopy 2019. ESTIMATED BLOOD LOSS: Minimal. IV sedation per Anesthesia. PROCEDURE: After informed consent was obtained, the patient, was brought into the endoscopy unit. IV sedation was administered by Anesthesia under continuous monitoring. Digital rectal examination was normal. Initially the Olympus CF-190 flexible video colonoscope was then inserted in the rectum, gradually advanced into the cecum without any difficulty. Careful examination was performed as the scope was gradually being withdrawn. Ileocecal valve and the appendiceal orifice were visualized and appeared normal. Prep was excellent. Mucosa of the cecum, ascending colon, transverse colon, descending colon, sigmoid colon, and rectum appeared normal. 3 diminutive ascending colon polyps removed cold forcep polypectomy. Retroflexion was performed in the rectum and no lesions were seen. The patient tolerated the procedure well. IMPRESSION: 3 diminutive ascending colon polyp removed with cold forcep polypectomy. RECOMMENDATIONS: Findings of this examination were discussed with the patient [id number]. Okay to resume diet. Okay to resume medication. Await pathology from polypectomy. Would recommend repeat colonoscopy in 3 years for history of colon polyps.
[2020-05-27 08:37] LABS: Glucose,Whole Blood 82 mg/dL (75-99)
[2020-05-27 08:44] VITALS: BP 126/74; PULSE 73
== END ==
LOC: ORWHC2ENDO 06:41
PROVIDERS: ATTEND Internal Medicine
DX: Z12.11 Encounter for screening for malignant neoplasm of colon (principal); K63.5 Polyp of colon; Z86.010 Personal history of colon polyps; Z87.891 Personal history of nicotine dependence; Z98.890 Other specified postprocedural states; K21.9 Gastro-esophageal reflux disease without esophagitis; I10 Essential (primary) hypertension; E78.5 Hyperlipidemia, unspecified; J44.9 Chronic obstructive pulmonary disease, unspecified; Z97.2 Presence of dental prosthetic device (complete) (partial); E11.9 Type 2 diabetes mellitus without complications; Z86.73 Personal history of transient ischemic attack (TIA), and cerebral infarction without residual deficits; Z79.4 Long term (current) use of insulin; Z79.51 Long term (current) use of inhaled steroids; Z79.899 Other long term (current) drug therapy
CPT/HCPCS: 88305; 45380; J2704

== ENCOUNTER → 2020-06-05 | Outpatient (CLI) | payer MEDICARE ==
--- NOTE | 2020-06-05 13:22 | CT ---
EXAMINATION TYPE: CT abdomen pelvis wo/w con DATE OF EXAM: 06/05/2020 COMPARISON: NONE HISTORY: 60-year-old male Coccyalgia, preprocedural clearance TECHNIQUE: Contiguous axial scanning of the abdomen and pelvis before and after, and Administration o f 100 ml Isovue 300 IV contrast. Delayed images through the kidneys and coronal/sagittal reconstruct ions performed. CT DLP: 4334 mGycm Automated exposure control for dose reduction was used. FINDINGS: Heart normal size without pericardial effusion. Scattered LAD coronary artery calcifications are pres ent. Large caliber to the main right pulmonary artery 3.1 cm. Lung bases are clear without pleural ef fusion. Liver enlarged at 21.0 cm. There is low density of the hepatic parenchyma compatible with fatty infil tration. No focal lesion seen. Portal venous system is patent. No biliary ductal dilatation. Gallbladder, adrenal glands, and pancreas are within normal limits. Spleen upper limits of normal in size at 13.1 cm. No nephrolithiasis or hydronephrosis. Delayed scanning shows no excretion of contrast into the renal collecting systems. No dilated small bowel, free fluid, or free air. No mesenteric or retroperitoneal lymphadenopathy. Prior ventral abdominal wall mesh repair. Moderate stool. Redundant sigmoid colon. Normal appendix. No pericolonic inflammatory change. Mild circumferential bladder wall thickening. Prostate gland mildly prominent at 4.0 cm wide. No abno rmal fluid collection in the pelvis. A few scattered prominent external iliac chain lymph nodes measu ring up to 1.2 cm. Prominent right common iliac chain lymph node measuring 1 cm. Bones: Mild degenerative change at the hips. Facet arthropathy lower lumbar spine. IMPRESSION: 1. LAD CORONARY ARTERY CALCIFICATIONS. 2. POSSIBLE UNDERLYING PULMONARY ARTERIAL HYPERTENSION GIVEN LARGE CALIBER TO THE VISUALIZED RIGHT MA IN PULMONARY ARTERY OF 3.1 CM. 3. 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 4. MILD CIRCUMFERENTIAL BLADDER WALL THICKENING COULD REPRESENT CHRONIC BLADDER WALL HYPERTROPHY OR C YSTITIS. 5. A FEW BORDERLINE TO MILDLY ENLARGED BILATERAL EXTERNAL ILIAC CHAIN LYMPH NODES MEASURING UP TO 1.2 CM PROBABLY REACTIVE/POST INFLAMMATORY. CONSIDER FOLLOW-UP IN 3-6 MONTHS TO ENSURE STABILITY/RESOLUT ION.
== END | disposition home or self-care (01) ==
LOC: RADCTMAIN 10:00
PROVIDERS: ATTEND Psychiatry & Neurology Neurology
DX: K76.0 Fatty (change of) liver, not elsewhere classified (principal); R16.0 Hepatomegaly, not elsewhere classified; N32.89 Other specified disorders of bladder; R59.9 Enlarged lymph nodes, unspecified; E11.9 Type 2 diabetes mellitus without complications
CPT/HCPCS: 82565; 84520; 74178; 36415; Q9967

== ENCOUNTER → 2020-09-17 | Outpatient (CLI) | payer MEDICARE ==
[2020-09-17 08:05] LABS: ALT 33 U/L (4-49); AST 32 U/L (17-59); African American GFR (CKD) >90 (>60 ml/min/1.73 sqM); Albumin 4.3 g/dL (3.5-5.0); Alkaline Phosphatase 50 U/L (38-126); Anion Gap 8 mmol/L; Blood Urea Nitrogen 29 mg/dL (9-20); Calcium 10.4 mg/dL (8.4-10.2); Carbon Dioxide 34 mmol/L (22-30); Chloride 96 mmol/L (98-107); Cholesterol 124 mg/dL (<200); Glucose 158 mg/dL (74-99); HDL Cholesterol 41 mg/dL (40-60); LDL Cholesterol,Calculated 54 mg/dL (0-99); Non-African American GFR(CKD) 85 (>60 ml/min/1.73 sqM); Potassium 4.3 mmol/L (3.5-5.1); Sodium 138 mmol/L (137-145); Total Bilirubin 0.8 mg/dL (0.2-1.3); Total Protein 7.2 g/dL (6.3-8.2); Triglycerides 147 mg/dL (<150)
--- NOTE | 2020-09-17 10:18 | CT ---
EXAMINATION TYPE: CT abdomen pelvis w con DATE OF EXAM: 09/17/2020 COMPARISON: 06/05/2020 HISTORY: Lymphadenopathy CT DLP: 4981 mGycm CONTRAST: CT scan of the abdomen and pelvis is performed with Oral Contrast and with IV Contrast, patient injec jorge l with 100 mL of Isovue 300. FINDINGS: LUNG BASES-: No visible nodule. No infiltrate. LIVER/GB: No calcified gallstones. There is hepatomegaly with underlying hepatic steatosis. No spa ce occupying hepatic lesion. Biliary tree is of normal caliber. PANCREAS: No inflammation. No distinct mass. SPLEEN: No splenic enlargement. No lesion seen. ADRENALS: No nodule. No thickening. KIDNEYS/BLADDER: No hydronephrosis. No nephrolithiasis. No distinct renal mass. Urinary bladder g rossly unremarkable. BOWEL: Normal appendix. Normal bowel caliber. No inflammation. Gastric wall thickening is noted. Co nsider direct visualization or upper GI. GENITAL ORGANS: No gross abnormality. LYMPH NODES: No greater than 1cm abdominal or pelvic lymph nodes are appreciated. Again noted are ex ternal iliac lymph nodes measuring up to 1 cm. AORTA: No significant abnormality. OSSEOUS STRUCTURES: No significant abnormality is seen. OTHER: No significant additional abnormality is seen. IMPRESSION: 1. hepatomegaly with underlying hepatic steatosis. 2.Gastric wall thickening is noted. Consider direct visualization or upper GI. 3. No adenopathy greater than 1 cm.
== END | disposition home or self-care (01) ==
LOC: RADCTMAIN 07:00
PROVIDERS: ATTEND Psychiatry & Neurology Neurology
DX: R16.0 Hepatomegaly, not elsewhere classified (principal); K76.0 Fatty (change of) liver, not elsewhere classified; K31.89 Other diseases of stomach and duodenum; E78.00 Pure hypercholesterolemia, unspecified; M85.811 Other specified disorders of bone density and structure, right shoulder
CPT/HCPCS: 80061; 80053; 82306; 74177; 36415; Q9967

== ENCOUNTER 2020-09-25 17:42 | Emergency (ER) | payer MEDICARE ==
[2020-09-25 17:52] VITALS: RESP 18; TEMP 97.6
--- NOTE | 2020-09-25 18:17 | ED ---
Wound/Laceration HPI - General Chief Complaint: Wound/Laceration Stated Complaint: Ankle injury Time Seen by Provider: 09/25/20 17:45 Source: patient, EMS Mode of arrival: EMS Limitations: no limitations - History of Present Illness Initial Comments: 60-year-old male presents to emergency Department with a chief complaint of a bleed. Patient states she was playing with his friend's dog whoaccidentally scratched the medial aspect of his right ankle with his rear foot toenail. Patient reports he noticed bleeding that he was unable to control. States he did apply pressure with no significant improvement in symptoms. states he discontinued anticoagulants last month. He denies any significant pain from the injury site. Denies any bite herbert to the injured site.tetanus up-to-date. - Related Data Home Medications Medication Instructions Recorded Confirmed Albuterol Inhaler (Mhu) [Ventolin 1 - 2 puff INHALATION Q6HR PRN 11/07/18 05/23/20 Hfa Inhaler (Mhu)] Atorvastatin [Lipitor] 80 mg PO HS 11/07/18 05/23/20 Insulin Aspart [NovoLOG Flexpen] 17 units SQ AC-TID 11/07/18 05/23/20 Omeprazole 40 mg PO DAILY 11/07/18 05/23/20 metFORMIN HCL [Glucophage] 500 mg PO BID-W/MEALS 11/07/18 05/23/20 metOLazone [Zaroxolyn] 5 mg PO BID 11/07/18 05/23/20 Insulin Glargine,Hum.rec.anlog 37 unit SQ BID 02/06/19 05/23/20 [Lantus Solostar] Potassium Chloride ER [K-Dur 20] 20 meq PO DAILY 02/06/19 05/23/20 Budesonide/Formoterol Fumarate 2 puff INHALATION BID 01/17/20 05/23/20 [Symbicort 160-4.5 Mcg Inhaler] Canagliflozin [Invokana] 300 mg PO DAILY 01/17/20 05/23/20 Doxepin HCl [SINEquan] 100 mg PO TID PRN 05/23/20 05/23/20 Ergocalciferol (Vitamin D2) 5.325 mcg PO WEEKLY 05/23/20 05/23/20 [Vitamin D2] Hydrocodone/Acetaminophen [[place] 1 each PO TID PRN 05/23/20 05/23/20 5-325] Losartan Potassium [Cozaar] 100 mg PO DAILY 05/23/20 05/23/20 Previous Rx's Medication Instructions Recorded Clopidogrel [Plavix] 75 mg PO DAILY #30 tab 02/08/19 Allergies Allergy/AdvReac Type Severity Reaction Status Date / Time No Known Allergies Allergy Verified 05/27/20 07:01 Review of Systems ROS Statement: Those systems with pertinent positive or pertinent negative responses have been documented in the HPI. ROS Other: All systems not noted in ROS Statement are negative. Past Medical History Past Medical History: COPD, CVA/TIA, Diabetes Mellitus, GERD/Reflux, Hyperlipidemia, Hypertension, Osteoarthritis (OA), Pneumonia, Vascular Disorder Additional Past Medical History / Comment(s): Neuropathy legs/feet, PVD, varicose veins, stroke February 2019-numbness rt lower leg and rt hand, hiatal hernia, hx. cellulitis legs, hx colon polyps, back pain., balance problems-uses cane. History of Any Multi-Drug Resistant Organisms: None Reported Past Surgical History: Hernia Repair Additional Past Surgical History / Comment(s): left jaw benign tumor removed, left jaw "impacted tissue" removed, left testicular hernia, abdominal hernia with mesh,. colonoscopy & EGD. arthroscopy right & left knee. Past Anesthesia/Blood Transfusion Reactions: No Reported Reaction Past Psychological History: Anxiety Smoking Status: Former smoker Past Alcohol Use History: None Reported Past Drug Use History: None Reported - Past Family History Mother Family Medical History: Myocardial Infarction ([place]) Additional Family Medical History / Comment(s): Mother from a [place] in her early 50s. Father Additional Family Medical History / Comment(s): Father had diabetes and had bilateral foot amputations and then of a massive [place] while recovering from that. He was in his 50s. Brother(s) Family Medical History: Cancer Additional Family Medical History / Comment(s): prostate,esophagus and bone cancer. General Exam Limitations: no limitations General appearance: alert, in no apparent distress, obese Head exam: Present: atraumatic, normocephalic, normal inspection Eye exam: Present: normal appearance, PERRL, EOMI Pupils: Present: normal accommodation ENT exam: Present: normal exam, normal oropharynx, mucous membranes moist Neck exam: Present: normal inspection, full ROM. Absent: tenderness Respiratory exam: Present: normal lung sounds bilaterally. Absent: respiratory distress Cardiovascular Exam: Present: regular rate, normal rhythm, normal heart sounds Extremities exam: Present: full ROM, normal capillary refill, pedal edema (+1 bilateral pitting edema), other (palpable DP and PT bilaterally.). Absent: normal inspection (continuous, nonpulsating bleed from the medial aspect of his right ankle. No laceration. This is a very small, superficial puncture), tenderness, joint swelling, calf tenderness Back exam: Present: normal inspection, full ROM. Absent: tenderness Neurological exam: Present: alert, oriented X3 Psychiatric exam: Present: normal affect, normal mood Skin exam: Present: warm, dry, intact, normal color Course Vital Signs 09/25/20 17:46 Temperature 97.6 F Pulse Rate 88 Respiratory 18 Rate Blood Pressure 133/87 O2 Sat by Pulse 95 Oximetry Medical Decision Making - Medical Decision Making 60-year-old male presents to emergency department with chief complaint of laceration. On physical examination, he has a a nonpulsating, continuous bleed on the medial aspect of his right ankle. this likely appears to be a superficial arterial bleed. pressure applied to the injured site and the bleeding resolve. new Gauze was applied and wrapped with Coban.patient was observed in the emergency department and the bleeding was controlled. Return parameters discussed the patient is understanding and agreeable. Case discussed with Dr. Gonsales who also examined the patient and his agreement with the treatment plan. Disposition Clinical Impression: Laceration Disposition: HOME SELF-CARE Condition: Stable Instructions (If sedation given, give patient instructions): Embolization (DC) Additional Instructions: Apply pressure to the regionof bleeding. Return to emergency department if symptoms worsen. Is patient prescribed a controlled substance at d/c from ED?: No Referrals: Pooja Talley MD [Primary Care Provider] - 1-2 days Time of Disposition: 18:46
[2020-09-25 18:55] VITALS: BP 136/82; PULSE 78
== END 2020-09-25 19:09 | disposition home or self-care (01) ==
LOC: EC 17:42
DX: S91.011A Laceration without foreign body, right ankle, initial encounter (principal); E11.40 Type 2 diabetes mellitus with diabetic neuropathy, unspecified; E11.51 Type 2 diabetes mellitus with diabetic peripheral angiopathy without gangrene; I73.9 Peripheral vascular disease, unspecified; I10 Essential (primary) hypertension; J44.9 Chronic obstructive pulmonary disease, unspecified; E78.5 Hyperlipidemia, unspecified; K21.9 Gastro-esophageal reflux disease without esophagitis; Z79.4 Long term (current) use of insulin; Z79.899 Other long term (current) drug therapy; Z79.51 Long term (current) use of inhaled steroids; Z86.73 Personal history of transient ischemic attack (TIA), and cerebral infarction without residual deficits; Z87.891 Personal history of nicotine dependence; W54.8XXA Other contact with dog, initial encounter
CPT/HCPCS: 99283

== ENCOUNTER → 2020-10-02 | Outpatient (CLI) | payer MEDICARE | END | disposition home or self-care (01) | LOC: LABWHC1 11:46 | PROVIDERS: ATTEND Psychiatry & Neurology Pain Medicine | DX: E21.5 Disorder of parathyroid gland, unspecified (principal) | CPT/HCPCS: 36415; 83970 ==

== ENCOUNTER → 2024-01-24 | Day surgery (SDC) | payer MEDICARE ==
[2024-01-23 11:00] VITALS: BMI 41.5
[~2024-01-24] MED LIST changes: -LACTATED RINGERS 1,000 ML IV ONE; -LACTATED RINGERS 1,000 ML IV SCH; -LIDOCAINE 1% (10MG/ML) FOR IV START INTRADERMA PRN; +LIDOCAINE 1% INJ 10MG/ML (20 ML MDV) ONE; -MIDAZOLAM 2 MG/2 ML VIAL IV PRN
[2024-01-24] MEDS: IV FLUID CONTINUATION 1,000 ML IV ONE (08:15)
[2024-01-24 08:16] LABS: Glucose,Whole Blood 97 mg/dL (70-110)
[2024-01-24 08:17] VITALS: TEMP 98
[2024-01-24] MEDS: LACTATED RINGERS 1,000 ML IV SCH (08:17)
--- NOTE | 2024-01-24 08:54 | P.PCN ---
Date of Procedure: 01/24/24 Procedure(s) Performed: Brief history: Patient is a pleasant 63-year-old white male scheduled for an elective upper endoscopy as well as colonoscopy as a part of evaluation of GERD/history of colon polyps. Procedure performed: Esophagogastroduodenoscopy with biopsy Colonoscopy with snare polypectomy Preoperative diagnosis: Longstanding history of GERD History of colon polyps Anesthesia: MAC Procedure: After informed consent was obtained from the patient was brought into the endoscopy unit and IV sedation was administered by anesthesia under continuous monitoring. Initially upper endoscopy was done. The Olympus GF 160 video endoscope was inserted inserted into the mouth and esophagus intubated without any difficulty and was gradually advanced into the stomach and duodenum and carefully examined. The bulb and second part of the duodenum appeared normal. The scope was then withdrawn into the stomach adequately insufflated with air and upon careful examination the antrum and body gastritis and biopsies were done from this area. In the proximal body of the stomach there were several s cattered erosions identified which were biopsied. On retroflexion cardia and fundus appeared normal. The scope was then withdrawn into the esophagus. The GE junction was located at 42 cm to the incisors. It appeared irregular with a 3 mm tongues of Asencio's appearing mucosa just proximal to the GE junction that was biopsied. Rest of the esophagus appeared normal. Patient tolerated the procedure well. At this time the patient continued to remain sedation. Initial digital rectal examination was normal. Olympus CF 160 video colonoscope was then inserted into the rectum and gradually advanced to the cecum without any difficulty. Careful examination was performed as the scope was gradually being withdrawn. The prep was poor. The cecum was filled with stool. A 5 mm polyp was noted in the base of the cecum but despite multiple attempts I was not able to clear up the stool and hence the polyp could not be removed. In the ascending colon there were 2 polyps measuring 5 mm and 6 mm in size both of which were removed by cold snare polypectomy. Rest of the the transverse colon, descending colon, sigmoid colon and rectum appeared normal. In the sigmoid colon there was a 3 mm polyp that was removed by cold biopsy. Retroflexion was performed in the rectum and no lesions were noted. Patient tolerated the procedure well. Impression: 1. Upper endoscopy revealed mild antral gastritis, scattered erosions in the proximal body of the stomach and short segment Asencio's esophagus 2. Colonoscopy revealed 5 mm and 6 mm ascending colon polyp status post snare polypectomy and a 3 mm sigmoid colon polyp status post cold biopsy Recommendations: Findings of this examination were discussed with the patient as well as his family. He was advised to follow-up with the biopsy results. If the biopsy confirms the presence of Asencio's esophagus, recommended upper endoscopy and colonoscopy in 3 years.
[2024-01-24 09:26] VITALS: BP 131/89; PULSE 52; RESP 14
[2024-01-24 09:30] LABS: Glucose,Whole Blood 89 mg/dL (70-110)
== END ==
LOC: ORWHC2ENDO 07:34
PROVIDERS: ATTEND Internal Medicine Gastroenterology
DX: Z12.11 Encounter for screening for malignant neoplasm of colon (principal); D12.2 Benign neoplasm of ascending colon; K22.70 Barrett's esophagus without dysplasia; K21.00 Gastro-esophageal reflux disease with esophagitis, without bleeding; K31.9 Disease of stomach and duodenum, unspecified; K29.70 Gastritis, unspecified, without bleeding; I10 Essential (primary) hypertension; E78.5 Hyperlipidemia, unspecified; J44.89 Other specified chronic obstructive pulmonary disease; G47.33 Obstructive sleep apnea (adult) (pediatric); E11.9 Type 2 diabetes mellitus without complications; Z86.010 Personal history of colon polyps; Z86.73 Personal history of transient ischemic attack (TIA), and cerebral infarction without residual deficits; Z79.02 Long term (current) use of antithrombotics/antiplatelets; Z79.51 Long term (current) use of inhaled steroids; Z79.899 Other long term (current) drug therapy; Z98.890 Other specified postprocedural states
CPT/HCPCS: 88305; 88342; 45380; 45385; 43239; J2001; J2704

== ENCOUNTER → 2024-03-01 | Outpatient (CLI) | payer MEDICARE ==
[2024-03-01 15:56] LABS: Blood Urea Nitrogen 13.4 mg/dL (9.0-27.0); Calcium 8.3 mg/dL (8.7-10.3); Carbon Dioxide 26.9 mmol/L (21.6-31.8); Chloride 97 mmol/L (96-109); Glucose 116 mg/dL (70-110); Sodium 140 mmol/L (135-145)
[2024-03-01 20:22] LABS: NT-Pro-B-Type Natriuretic Pept 36 pg/mL (0-125)
== END | disposition home or self-care (01) ==
LOC: LABWHC1 10:51
PROVIDERS: ATTEND Internal Medicine Cardiovascular Disease
DX: R60.0 Localized edema (principal)
CPT/HCPCS: 36415; 80048; 83880

== ENCOUNTER → 2025-02-13 | Outpatient (CLI) | payer MEDICARE, OTHER ==
[2025-02-13 18:47] LABS: NT-Pro-B-Type Natriuretic Pept 37 pg/mL (0-125)
[2025-02-13 19:05] LABS: Anion Gap 19.30 mmol/L (4.00-12.00); BUN/Creat Ratio 14.00 Ratio (12.00-20.00); Blood Urea Nitrogen 14.0 mg/dL (9.0-27.0); Calcium 9.8 mg/dL (8.7-10.3); Carbon Dioxide 22.7 mmol/L (21.6-31.8); Chloride 98 mmol/L (96-109); Glucose 264 mg/dL (70-110); Potassium 3.8 mmol/L (3.5-5.5); Sodium 140 mmol/L (135-145)
== END | disposition home or self-care (01) ==
LOC: LABWHC1 14:51
PROVIDERS: ATTEND Internal Medicine Cardiovascular Disease
DX: R60.0 Localized edema (principal)
CPT/HCPCS: 36415; 80048; 83880